=== PATIENT | female | born 1945 | race Caucasian/White ===

== ENCOUNTER 2019-11-17 20:04 | Inpatient (IN) | payer MEDICARE, OTHER ==
[2019-11-17] MEDS ORDERED: SODIUM CHLORIDE 0.9% 1,000 ML IV STA (20:13)
[2019-11-17] MEDS ORDERED: ZIPRASIDONE 20 MG VIAL IM STA (20:17)
[2019-11-17] MEDS ORDERED: LORazepam 2 MG/ML INJ IM STA (20:17)
[2019-11-17 20:21] LABS: Glucose,Whole Blood 190 mg/dL (75-99)
--- NOTE | 2019-11-17 20:52 | ED ---
Altered Mental Status HPI - General Chief Complaint: Altered Mental Status Stated Complaint: Altered Mental Status Time Seen by Provider: 11/17/19 20:04 Source: patient, police, EMS, RN notes reviewed Mode of arrival: EMS - History of Present Illness Initial Comments: This is a 74-year-old female history of hypertension and thyroid disease who is brought in by EMS at the behest of police because of confusion and altered mental status and erratic behavior. Is unknown what the patient's had any drugs or alcohol she did apparently moved here recently from [facility] that about 3 weeks ago. No reports of trauma no fevers chills nausea vomiting sweats reported with the history is limited. MD Complaint: altered mental status, confusion - Related Data Home Medications Medication Instructions Recorded Confirmed Unable To Assess [Unable to Assess] 11/17/19 11/17/19 Allergies Allergy/AdvReac Type Severity Reaction Status Date / Time No Known Allergies Allergy Verified 11/17/19 20:28 Review of Systems ROS Statement: Those systems with pertinent positive or pertinent negative responses have been documented in the HPI. ROS Other: All systems not noted in ROS Statement are negative. Limitations: ROS unobtainable due to patients medical condition Past Medical History Past Medical History: Hyperlipidemia, Thyroid Disorder History of Any Multi-Drug Resistant Organisms: None Reported Past Surgical History: Hysterectomy Past Psychological History: Unable to Obtain Smoking Status: Unknown if ever smoked Past Alcohol Use History: None Reported Past Drug Use History: None Reported General Exam - General Exam Comments Initial Comments: This is a well-developed well-nourished awake alert female who is demonstrating flight of ideas and evidence of paranoid behavior. General appearance: alert, anxious Head exam: Present: atraumatic, normocephalic, normal inspection Eye exam: Present: normal appearance, PERRL, EOMI. Absent: scleral icterus, conjunctival injection, periorbital swelling ENT exam: Present: normal exam, mucous membranes moist Neck exam: Present: normal inspection, full ROM, other (No stridor JVD or bruits). Absent: tenderness, meningismus, lymphadenopathy Respiratory exam: Present: normal lung sounds bilaterally. Absent: respiratory distress, wheezes, rales, rhonchi, stridor Cardiovascular Exam: Present: regular rate, normal rhythm, normal heart sounds. Absent: systolic murmur, diastolic murmur, rubs, gallop, clicks GI/Abdominal exam: Present: soft, normal bowel sounds. Absent: distended, tenderness, guarding, rebound, rigid Extremities exam: Present: normal inspection, full ROM, normal capillary refill. Absent: tenderness, pedal edema, joint swelling, calf tenderness Back exam: Present: normal inspection Neurological exam: Present: alert, altered, CN II-XII intact. Absent: motor sensory deficit Psychiatric exam: Present: agitated, anxious, manic, other Skin exam: Present: warm, dry, intact, normal color. Absent: rash Course Vital Signs 11/17/19 11/17/19 11/17/19 20:12 22:15 22:33 Temperature 99.1 F Pulse Rate 88 62 61 Respiratory 17 16 18 Rate Blood Pressure 138/91 78/56 109/71 O2 Sat by Pulse 94 L 98 97 Oximetry - Reevaluation(s) Reevaluation #1: 11/17/19 23:34 Patient was reevaluated on several occasions she did require initially chemical sedation due to bizarre erratic behavior which did threaten her well-being. She since that time has been resting comfortably she did have an episode of hypotension did resolve after IV fluids. Medical Decision Making - Medical Decision Making Patient continues to demonstrate sedation. She will be admitted for observation tonight for IV hydration and monitoring with psychiatric consultation in the a.m. Medical records from [facility] are pending delivery. - Lab Data Result diagrams: 11/17/19 20:43 11/17/19 20:43 Lab Results 11/17/19 11/17/19 11/17/19 Range/Units 20:09 20:43 20:43 WBC 6.2 (3.8-10.6) k/uL RBC 5.19 (3.80-5.40) m/uL Hgb 15.5 (11.4-16.0) gm/dL Hct 45.3 (34.0-46.0) % MCV 87.2 (80.0-100.0) fL MCH 29.8 (25.0-35.0) pg MCHC 34.2 (31.0-37.0) g/dL RDW 12.6 (11.5-15.5) % Plt Count 330 (150-450) k/uL Neutrophils % 68 % Lymphocytes % 25 % Monocytes % 4 % Eosinophils % 1 % Basophils % 0 % Neutrophils # 4.2 (1.3-7.7) k/uL Lymphocytes # 1.6 (1.0-4.8) k/uL Monocytes # 0.3 (0-1.0) k/uL Eosinophils # 0.1 (0-0.7) k/uL Basophils # 0.0 (0-0.2) k/uL PT 9.7 (9.0-12.0) sec INR 0.9 (<1.2) APTT 22.0 (22.0-30.0) sec Sodium (137-145) mmol/L Potassium (3.5-5.1) mmol/L Chloride (98-107) mmol/L Carbon Dioxide (22-30) mmol/L Anion Gap mmol/L BUN (7-17) mg/dL Creatinine (0.52-1.04) mg/dL Est GFR (CKD-EPI)AfAm (>60 ml/min/1.73 sqM) Est GFR (CKD-EPI)NonAf (>60 ml/min/1.73 sqM) Glucose (74-99) mg/dL POC Glucose (mg/dL) 190 H (75-99) mg/dL POC Glu [employer] Concierge ID Octavio Jenkins Calcium (8.4-10.2) mg/dL Magnesium (1.6-2.3) mg/dL Total Bilirubin (0.2-1.3) mg/dL AST (14-36) U/L ALT (4-34) U/L Alkaline Phosphatase (38-126) U/L Ammonia (<30) umol/L Creatine Kinase (30-135) U/L Troponin I (0.000-0.034) ng/mL Total Protein (6.3-8.2) g/dL Albumin (3.5-5.0) g/dL TSH (0.465-4.680) mIU/L Urine Color Urine Appearance (Clear) Urine pH (5.0-8.0) Ur Specific [place] (1.001-1.035) Urine Protein (Negative) Urine Glucose (UA) (Negative) Urine Ketones (Negative) Urine Blood (Negative) Urine Nitrite (Negative) Urine Bilirubin (Negative) Urine Urobilinogen (<2.0) mg/dL Ur Leukocyte Esterase (Negative) Urine RBC (0-5) /hpf Urine WBC (0-5) /hpf Ur Squamous Epith Cells (0-4) /hpf Urine Bacteria (None) /hpf Hyaline Casts (0-2) /lpf Urine Mucus (None) /hpf 11/17/19 11/17/19 11/17/19 Range/Units 20:43 20:43 21:02 WBC (3.8-10.6) k/uL RBC (3.80-5.40) m/uL Hgb (11.4-16.0) gm/dL Hct (34.0-46.0) % MCV (80.0-100.0) fL MCH (25.0-35.0) pg MCHC (31.0-37.0) g/dL RDW (11.5-15.5) % Plt Count (150-450) k/uL Neutrophils % % Lymphocytes % % Monocytes % % Eosinophils % % Basophils % % Neutrophils # (1.3-7.7) k/uL Lymphocytes # (1.0-4.8) k/uL Monocytes # (0-1.0) k/uL Eosinophils # (0-0.7) k/uL Basophils # (0-0.2) k/uL PT (9.0-12.0) sec INR (<1.2) APTT (22.0-30.0) sec Sodium 138 (137-145) mmol/L Potassium 4.0 (3.5-5.1) mmol/L Chloride 106 (98-107) mmol/L Carbon Dioxide 25 (22-30) mmol/L Anion Gap 7 mmol/L BUN 19 H (7-17) mg/dL Creatinine 1.02 (0.52-1.04) mg/dL Est GFR (CKD-EPI)AfAm 62 (>60 ml/min/1.73 sqM) Est GFR (CKD-EPI)NonAf 54 (>60 ml/min/1.73 sqM) Glucose 159 H (74-99) mg/dL POC Glucose (mg/dL) (75-99) mg/dL POC Glu [employer] Concierge ID Calcium 10.4 H (8.4-10.2) mg/dL Magnesium 2.3 (1.6-2.3) mg/dL Total Bilirubin 0.8 (0.2-1.3) mg/dL AST 31 (14-36) U/L ALT 29 (4-34) U/L Alkaline Phosphatase 91 (38-126) U/L Ammonia 12 (<30) umol/L Creatine Kinase 111 (30-135) U/L Troponin I <0.012 (0.000-0.034) ng/mL Total Protein 7.0 (6.3-8.2) g/dL Albumin 4.3 (3.5-5.0) g/dL TSH 1.400 (0.465-4.680) mIU/L Urine Color Urine Appearance (Clear) Urine pH (5.0-8.0) Ur Specific [place] (1.001-1.035) Urine Protein (Negative) Urine Glucose (UA) (Negative) Urine Ketones (Negative) Urine Blood (Negative) Urine Nitrite (Negative) Urine Bilirubin (Negative) Urine Urobilinogen (<2.0) mg/dL Ur Leukocyte Esterase (Negative) Urine RBC (0-5) /hpf Urine WBC (0-5) /hpf Ur Squamous Epith Cells (0-4) /hpf Urine Bacteria (None) /hpf Hyaline Casts (0-2) /lpf Urine Mucus (None) /hpf 03/25/20 Range/Units 23:04 WBC (3.8-10.6) k/uL RBC (3.80-5.40) m/uL Hgb (11.4-16.0) gm/dL Hct (34.0-46.0) % MCV (80.0-100.0) fL MCH (25.0-35.0) pg MCHC (31.0-37.0) g/dL RDW (11.5-15.5) % Plt Count (150-450) k/uL Neutrophils % % Lymphocytes % % Monocytes % % Eosinophils % % Basophils % % Neutrophils # (1.3-7.7) k/uL Lymphocytes # (1.0-4.8) k/uL Monocytes # (0-1.0) k/uL Eosinophils # (0-0.7) k/uL Basophils # (0-0.2) k/uL PT (9.0-12.0) sec INR (<1.2) APTT (22.0-30.0) sec Sodium (137-145) mmol/L Potassium (3.5-5.1) mmol/L Chloride (98-107) mmol/L Carbon Dioxide (22-30) mmol/L Anion Gap mmol/L BUN (7-17) mg/dL Creatinine (0.52-1.04) mg/dL Est GFR (CKD-EPI)AfAm (>60 ml/min/1.73 sqM) Est GFR (CKD-EPI)NonAf (>60 ml/min/1.73 sqM) Glucose (74-99) mg/dL POC Glucose (mg/dL) (75-99) mg/dL POC Glu [employer] Concierge ID Calcium (8.4-10.2) mg/dL Magnesium (1.6-2.3) mg/dL Total Bilirubin (0.2-1.3) mg/dL AST (14-36) U/L ALT (4-34) U/L Alkaline Phosphatase (38-126) U/L Ammonia (<30) umol/L Creatine Kinase (30-135) U/L Troponin I (0.000-0.034) ng/mL Total Protein (6.3-8.2) g/dL Albumin (3.5-5.0) g/dL TSH (0.465-4.680) mIU/L Urine Color Yellow Urine Appearance Turbid H (Clear) Urine pH 6.0 (5.0-8.0) Ur Specific [place] 1.031 (1.001-1.035) Urine Protein 2+ H (Negative) Urine Glucose (UA) Negative (Negative) Urine Ketones 1+ H (Negative) Urine Blood Small H (Negative) Urine Nitrite Negative (Negative) Urine Bilirubin Negative (Negative) Urine Urobilinogen 2.0 (<2.0) mg/dL Ur Leukocyte Esterase Moderate H (Negative) Urine RBC 31 H (0-5) /hpf Urine WBC 9 H (0-5) /hpf Ur Squamous Epith Cells 9 H (0-4) /hpf Urine Bacteria Occasional H (None) /hpf Hyaline Casts 95 H (0-2) /lpf Urine Mucus Many H (None) /hpf - EKG Data -: EKG Interpreted by Ak EKG shows normal: sinus rhythm (Sinus rhythm at a time. Interval 150 QRS duration 1:30 QT/QTC 382/464) bundle-branch block left anterior fascicular block evidence of septal infarct of undetermined age) - Radiology Data Radiology results: report reviewed (Did review the imaging and report no acute findings.), image reviewed Disposition Clinical Impression: Acute hysterical psychosis, Hailey, Hypotensive episode, Dehydration Disposition: ADMITTED IP TO THIS [facility] Condition: Fair Referrals: None,Stated [Primary Care Provider] - 1-2 days
[2019-11-17 20:56] LABS: Basophils % (A) 0 %; Eosinophils # (A) 0.1 k/uL (0-0.7); Eosinophils % (A) 1 %; HCT 45.3 % (34.0-46.0); HGB 15.5 gm/dL (11.4-16.0); Lymphocytes # (A) 1.6 k/uL (1.0-4.8); Lymphocytes % (A) 25 %; MCH 29.8 pg (25.0-35.0); MCHC 34.2 g/dL (31.0-37.0); MCV 87.2 fL (80.0-100.0); Mean Platelet Volume 6.6; Monocytes # (A) 0.3 k/uL (0-1.0); Monocytes % (A) 4 %; Neutrophils # (A) 4.2 k/uL (1.3-7.7); Neutrophils % (A) 68 %; Platelet Count 330 k/uL (150-450); RBC 5.19 m/uL (3.80-5.40); RDW 12.6 % (11.5-15.5); WBC 6.2 k/uL (3.8-10.6)
[2019-11-17 21:04] LABS: Albumin 4.3 g/dL (3.5-5.0); Calcium 10.4 mg/dL (8.4-10.2); Magnesium 2.3 mg/dL (1.6-2.3); Total Bilirubin 0.8 mg/dL (0.2-1.3)
[2019-11-17 21:25] LABS: INR 0.9 (<1.2); Prothrombin Time 9.7 sec (9.0-12.0)
--- NOTE | 2019-11-17 21:38 | CT ---
EXAMINATION TYPE: CT brain wo con DATE OF EXAM: 11/17/2019 COMPARISON: None HISTORY: ams, fever CT DLP: 1197.[address] of the brain was performed. The ventricles, basal cisterns and sulci overlying the cerebral convexities demonstrate mild enlargem ent. There is no evidence for intracranial hemorrhage or sulcal effacement. There is decreased attenuation about the periventricular white matter and deep white matter of both c erebral hemispheres, compatible with chronic small vessel ischemia. Differential diagnosis does inclu de demyelination. No mass effects are seen.No midline shift. Osseous calvarium is intact. If symptoms persist consider MRI. IMPRESSION: 1. Age related atrophic and chronic small vessel ischemic change without acute intracranial process s een at this time.
--- NOTE | 2019-11-17 21:38 | XR ---
EXAMINATION TYPE: XR chest 2V DATE OF EXAM: 11/17/2019 COMPARISON: NONE HISTORY: Shortness of breath TECHNIQUE: Frontal and lateral views of the chest are obtained. FINDINGS: Scattered senescent parenchymal changes noted. Hyperinflation compatible with COPD. No evidence for infiltrate. No evidence for atelectasis. Heart size is stable. Mediastinal structures are stable and grossly unremarkable. No evidence for hilar prominence. Degenerative changes dorsal spine. IMPRESSION: 1. No evidence for acute pulmonary disease.
[2019-11-17] MEDS ORDERED: SODIUM CHLORIDE 0.9% 1,000 ML IV ONE (22:16)
[2019-11-17 23:24] LABS: Appearance,Urine Turbid (Clear); Bacteria,Urine Occasional /hpf; Bilirubin,Urine Negative (Negative); Blood,Urine Small (Negative); Color,Urine Yellow; Glucose,Urine (UA) Negative (Negative); Hyaline Casts,Urine 95 /lpf (0-2); Ketones,Urine 1+ (Negative); Leukocyte Esterase,Urine Moderate (Negative); Mucus,Urine Many /hpf; Nitrite,Urine Negative (Negative); Protein,Urine 2+ (Negative); RBC,Urine 31 /hpf (0-5); Specific Gravity,Urine 1.031 (1.001-1.035); Squamous Epithelial Cell,Urine 9 /hpf (0-4); WBC,Urine 9 /hpf (0-5)
[2019-11-17] MEDS ORDERED: NALOXONE 0.4 MG/ML 1 ML VIAL IV PRN (23:37)
[2019-11-17 23:39] LABS: Amphetamine Screen,Urine Not Detected (NotDetected); Barbiturate Screen,Urine Not Detected (NotDetected); Benzodiazepines Screen,Urine Not Detected (NotDetected); Cocaine Screen,Urine Not Detected (NotDetected); Methadone Screen, Urine Not Detected (NotDetected); Opiate Screen,Urine Not Detected (NotDetected); Oxycodone Screen, Urine Not Detected (NotDetected); Phencyclidine Screen,Urine Not Detected (NotDetected); Tricyclic Antidepressant,Urine Not Detected (NotDetected); Urn Cannabinoid Scrn Not Detected (NotDetected)
[2019-11-18] MEDS: SODIUM CHLORIDE 0.9% 1,000 ML IV SCH ×2 (00:07→13:54)
--- NOTE | 2019-11-18 11:42 | P.HPIM ---
History of Present Illness 74-year-old female was brought in by police because of agitation. Patient was quite a bit agitated yesterday patient received Geodon and Ativan today because of which way she she is bit slow patient alert oriented 3. Patient denied any UTI symptoms including dysuria superpubic pain increased urinary frequency patient has contaminated urine sample patient blood quite any antibiotics. Patient is admitted to medical floor with psychiatric consult as patient had recent travel to [place] it's been 12 days, since see came to [place], plan is to keep her couple more days here before she is clear to go to psychiatric floor unless she is cleared by psychiatric to be discharged home. Patient denied any cough fever chills nausea vomiting. Patient may not require sitter patient denied any suicidal or homicidal ideations at this time. Patient is presently not agitated. If patient is cleared by psychiatric to be discharged then patient will be discharged with recommendations of self-isolation. Review of Systems REVIEW OF SYSTEMS: CONSTITUTIONAL: No fever, no malaise, no fatigue. HEENT: No recent visual problems or hearing problems. Denied any sore throat. CARDIOVASCULAR: No chest pain, orthopnea, PND, no palpitations, no syncope. PULMONARY: No shortness of breath, no cough, no hemoptysis. GASTROINTESTINAL: No diarrhea, no nausea, no vomiting, no abdominal pain. NEUROLOGICAL: No headaches, no weakness, no numbness. HEMATOLOGICAL: Denies any bleeding or petechiae. GENITOURINARY: Denies any burning micturition, frequency, or urgency. MUSCULOSKELETAL/RHEUMATOLOGICAL: Denies any joint pain, swelling, or any muscle pain. ENDOCRINE: Denies any polyuria or polydipsia. The rest of the 14-point review of systems is negative. Past Medical History Past Medical History: Hyperlipidemia, Thyroid Disorder History of Any Multi-Drug Resistant Organisms: None Reported Past Surgical History: Hysterectomy Past Psychological History: Unable to Obtain Smoking Status: Unknown if ever smoked Past Alcohol Use History: None Reported Past Drug Use History: None Reported Medications and Allergies Home Medications Medication Instructions Recorded Confirmed Type Aspirin [Adult Low Dose Aspirin EC] 81 mg PO DAILY 11/18/19 11/18/19 History Levothyroxine Sodium 112 mcg PO DAILY 11/18/19 11/18/19 History Metoprolol Tartrate [Lopressor] 25 mg PO BID 11/18/19 11/18/19 History Multivitamins, Thera [Multivitamin 1 tab PO W/SUPPER 11/18/19 11/18/19 History (formulary)] Allergies Allergy/AdvReac Type Severity Reaction Status Date / Time lamotrigine Allergy Rash/Hives Verified 11/18/19 08:53 zolpidem AdvReac Unknown Verified 11/18/19 08:53 Physical Exam Vitals: Vital Signs Temp Pulse Pulse Resp BP BP Pulse Ox 11/18/19 07:00 98.6 F 66 17 130/84 99 11/18/19 04:00 17 11/18/19 03:17 97.1 F L 69 14 143/86 100 11/18/19 00:16 98.3 F 67 16 104/68 98 11/17/19 23:00 65 16 112/91 100 11/17/19 22:33 61 18 109/71 97 11/17/19 22:15 62 16 78/56 98 11/17/19 20:12 99.1 F 88 17 138/91 94 L Intake and Output 11/17/19 11/18/19 11/18/19 22:59 06:59 14:59 Output Total 0 Balance 0 Output: Urine 0 Other: # Voids 0 Weight 165.9 kg 165.9 kg PHYSICAL EXAMINATION: GENERAL: The patient is alert and oriented x3, not in any acute distress. Well developed, well nourished. HEENT: Pupils are round and equally reacting to light. EOMI. No scleral icterus. No conjunctival pallor. Normocephalic, atraumatic. No pharyngeal erythema. No thyromegaly. CARDIOVASCULAR: S1 and S2 present. No murmurs, rubs, or gallops. PULMONARY: Chest is clear to auscultation, no wheezing or crackles. ABDOMEN: Soft, nontender, nondistended, normoactive bowel sounds. No palpable organomegaly. MUSCULOSKELETAL: No joint swelling or deformity. EXTREMITIES: No cyanosis, clubbing, or pedal edema. NEUROLOGICAL: Gross neurological examination did not reveal any focal deficits. SKIN: No rashes. Psychiatric patient is mentally slow not agitated at this time I believe it's because of Geodon and Ativan she received Results CBC & Chem 7: 11/17/19 20:43 11/17/19 20:43 Labs: Abnormal Lab Results - Last 24 Hours (Table) 11/17/19 11/17/19 11/17/19 Range/Units 20:09 20:43 23:04 BUN 19 H (7-17) mg/dL Glucose 159 H (74-99) mg/dL POC Glucose (mg/dL) 190 H (75-99) mg/dL Calcium 10.4 H (8.4-10.2) mg/dL Urine Appearance Turbid H (Clear) Urine Protein 2+ H (Negative) Urine Ketones 1+ H (Negative) Urine Blood Small H (Negative) Ur Leukocyte Esterase Moderate H (Negative) Urine RBC 31 H (0-5) /hpf Urine WBC 9 H (0-5) /hpf Ur Squamous Epith Cells 9 H (0-4) /hpf Urine Bacteria Occasional H (None) /hpf Hyaline Casts 95 H (0-2) /lpf Urine Mucus Many H (None) /hpf Thrombosis Risk Factor Assmnt - Choose All That Apply Each Risk Factor Represents 3 Points: Age 75 years or older Thrombosis Risk Factor Assessment Total Risk Factor Score: 3 Thrombosis Risk Factor Assessment Level: Moderate Risk Assessment and Plan Plan: -Agitation and psychosis: Management as per psychiatry and patient received Geodon and Ativan Ativan will be discontinued at this time. -Asymptomatic bacteriuria and contaminated urine sample will not require any antibiotics at this time. -Hypothyroidism -Hyperlipidemia -Hypertension for these medical problems patient will be resumed on appropriate home medications -DVT prophylaxis early ambulation
--- NOTE | 2019-11-18 13:12 | P.HP ---
Psychiatric H&P - . H&P Date: 11/18/19 History & Physical: DATE OF SERVICE: 11/18/2019 IDENTIFYING DATA: HISTORY OF PRESENT ILLNESS: The patient is a 74-year-old , female was brought in to ER by police because of agitation. As per ER records, she was quite agitated and received Geodon and Ativan. She is bit slow but alert oriented 3. The patient is a poor historian and was not cooperative with the psychiatric evaluation. Limited information was obtained through chart review. A detailed letter from patient's daughter was found in the chart that was reviewed. As per the records the patient has a long history of psychiatric illness with the diagnosis of chronic paranoid schizophrenia and bipolar disorder. The patient shows lack of insight into her illness and his long history of poor compliance with her p sychiatric treatment. The patient reports that she has not been taking her psychiatric medications and refused to provide any information about the last time she took the medications. The patient reports that she moved to [place] from [place] about 12 days ago because "the environment was changing there". The patient reports fair sleep and appetite but reports that she has been trying to eat lesser than her appetite. The patient became agitated when asked about her psychiatric history and refused to answer any questions. The patient reports that she believed that she does not need any psychiatric treatment at this time. The patient denies any auditory or visual hallucinations but appears to be preoccupied and at times appears to be responding to internal cues. The patient denies any active suicidal or homicidal ideations but appears to be paranoid. The patient made comments about drugs being added to her food. PAST PSYCHIATRIC HISTORY: The patient admitted to previous psychiatric hospitalizations. As per the letter from her daughter, the patient has long history of psychiatric illness ever since the daughter was young. The patient has history of multiple psychiatric hospitalizations in the past and was last hospitalized about a year ago in [place]. The patient has history of poor compliance with her treatment. The patient has history of multiple involuntary commitments in the past as well. The patient currently has DPA. As per the letter from her daughter, the patient has history of 4 episodic mood swings, paranoia, agitation, and responding to internal cues. PAST MEDICAL HISTORY: Hyperlipidemia, Thyroid Disorder History of Any Multi-Drug Resistant Organisms: None Reported Past Surgical History: Hysterectomy Past Psychological History: Unable to Obtain Smoking Status: Unknown if ever smoked Past Alcohol Use History: None Reported Past Drug Use History: None Reported ALLERGIES: [Zolpidem and Lamotrogine]. CHEMICAL DEPENDENCY HISTORY: [None reported]. FAMILY PSYCHIATRIC HISTORY: [Unavailable because the patient refused to answer]. FAMILY CHEMICAL DEPENDENCY HISTORY:[ Unavailable because the patient refused to answer]. LEGAL HISTORY: [Multiple involuntary commitments to psychiatric hospitals]. SOCIAL HISTORY: [Limited information is available at this time. The patient reports that she moved from [place] to [place] about 2 weeks ago. She r eports living with "the most wonderful cunningham in the world" who is her boyfriend. The patient is currently a and has 2 daughters.]. Objective: Vitals has been reviewed. MENTAL STATUS EXAM: Appearance: The patient appears stated age, she appears in no acute distress and is laying comfortably in bed.. Gait/posture: No abnormal movements. Attitude and behavior: The patient was attempting to be superficially cooperative in the beginning of the session but became agitated when asked about psychiatric history. Motor activity: Increased psychomotor agitation. Speech: Hyperverbal, rapid and tangential. She was difficult to be redirected. Mood: "Good" Affect: Expanded Thought form: Confused and disorganized Thought content: Delusional and paranoid, she denies suicidal thoughts, denies homicidal thoughts, denies intentions or plans. Perception: Denies any auditory or visual hallucinations Orientation: Patient patient was fully oriented to time place person and situation. Insight: Patient has poor insight about her psychiatric disorder. Judgment: Patient has impaired judgment about her psychiatric treatment. ]. Allergy/AdvReac Type Severity Reaction Status Date / Time lamotrigine Allergy Rash/Hives Verified 11/18/19 08:53 zolpidem AdvReac Unknown Verified 11/18/19 08:53 Vital Signs Temp 98.6 F 11/18/19 07:00 Pulse 66 11/18/19 07:00 Resp 17 11/18/19 07:00 BP 130/84 11/18/19 07:00 Pulse Ox 99 11/18/19 07:00 Intake & Output 11/17/19 11/18/19 11/18/19 18:59 06:59 18:59 Output Total 0 Balance 0 Weight 165.9 kg Output: Urine 0 Other: # Voids 0 Laboratory Last Values WBC 6.2 k/uL (3.8-10.6) 11/17/19 20:43 RBC 5.19 m/uL (3.80-5.40) 11/17/19 20:43 Hgb 15.5 gm/dL (11.4-16.0) 11/17/19 20:43 Hct 45.3 % (34.0-46.0) 11/17/19 20: MCV 87.2 fL (80.0-100.0) 11/17/19:43 MCH 29.8 pg (25.0-35.0) 11/17/19 20: MCHC 34.2 g/dL (31.0-37.0) 11/17/19: RDW 12.6 % (11.5-15.5) 11/17/19: Plt Count 330 k/uL (150-450) 11/17/19 20: Neutrophils % 68 % 11/17/19 20:43 Lymphocytes % 25 % 11/17/19 20: Monocytes % 4 % 11/17/19: Eosinophils % 1 % 11/17/19 20: Basophils % 0 % 11/17/19 20:43 Neutrophils # 4.2 k/uL (1.3-7.7) 11/17/19:43 Lymphocytes # 1.6 k/uL (1.0-4.8) 11/17/19:43 Monocytes # 0.3 k/uL (0-1.0) 11/17/19:43 Eosinophils # 0.1 k/uL (0-0.7) 11/17/19: Basophils # 0.0 k/uL (0-0.2) 11/17/19 20:43 PT 9.7 sec (9.0-12.0) 11/17/19 20:43 INR 0.9 (<1.2) 11/17/19:43 APTT 22.0 sec (22.0-30.0) 11/17/19 20:43 Sodium 138 mmol/L (137-145) 11/17/19 20:43 Potassium 4.0 mmol/L (3.5-5.1) 11/17/19 20:43 Chloride 106 mmol/L (98-107) 11/17/19 20:43 Carbon Dioxide 25 mmol/L (22-30) 11/17/19 20:43 Anion Gap 7 mmol/L 11/17/19 20: BUN 19 mg/dL (7-17) H 11/17/19 20: Creatinine 1.02 mg/dL (0.52-1.04) 11/17/19 20:43 Est GFR (CKD-EPI)AfAm 62 (>60 ml/min/1.73 sqM) 11/17/19: Est GFR (CKD-EPI)NonAf 54 (>60 ml/min/1.73 sqM) 11/17/19 20: Glucose 159 mg/dL (74-99) H 11/17/19: POC Glucose (mg/dL) 190 mg/dL (75-99) H 11/17/19 20:09 POC Glu Transportation Consultant ID Octavio Jenkins 11/17/19 20: Calcium 10.4 mg/dL (8.4-10.2) H 11/17/19: Magnesium 2.3 mg/dL (1.6-2.3) 11/17/19: Total Bilirubin 0.8 mg/dL (0.2-1.3) 11/17/19 20: AST 31 U/L (14-36) 11/17/19: ALT 29 U/L (4-34) 11/17/19: Alkaline Phosphatase 91 U/L (38-126) 11/17/19: Ammonia 12 umol/L (<30) 11/17/19 21:02 Creatine Kinase 111 U/L (30-135) 11/17/19: Troponin I <0.012 ng/mL (0.000-0.034) 11/17/19: Total Protein 7.0 g/dL (6.3-8.2) 11/17/19: Albumin 4.3 g/dL (3.5-5.0) 11/17/19 20: TSH 1.400 mIU/L (0.465-4.680) 11/17/19 20:43 Urine Color Yellow 11/17/19 23:04 Urine Appearance Turbid (Clear) H 11/17/19 23:04 Urine pH 6.0 (5.0-8.0) 11/17/19 23:04 Ur Specific [place] 1.031 (1.001-1.035) 11/17/19 23:04 Urine Protein 2+ (Negative) H 11/17/19 23:04 Urine Glucose (UA) Negative (Negative) 11/17/19 23:04 Urine Ketones 1+ (Negative) H 11/17/19 23:04 Urine Blood Small (Negative) H 11/17/19 23:04 Urine Nitrite Negative (Negative) 11/17/19 23:04 Urine Bilirubin Negative (Negative) 11/17/19 23:04 Urine Urobilinogen 2.0 mg/dL (<2.0) 11/17/19 23:04 Ur Leukocyte Esterase Moderate (Negative) H 11/17/19 23:04 Urine RBC 31 /hpf (0-5) H 11/17/19 23:04 Urine WBC 9 /hpf (0-5) H 11/17/19 23:04 Ur Squamous Epith Cells 9 /hpf (0-4) H 11/17/19 23:04 Urine Bacteria Occasional /hpf (None) H 11/17/19 23:04 Hyaline Casts 95 /lpf (0-2) H 11/17/19 23:04 Urine Mucus Many /hpf (None) H 11/17/19 23:04 Urine Opiates Screen Not Detected (NotDetected) 11/17/19 23:04 Ur Oxycodone Screen Not Detected (NotDetected) 11/17/19 23:04 Urine Methadone Screen Not Detected (NotDetected) 11/17/19 23:04 Ur Propoxyphene Screen Not Detected (NotDetected) 11/17/19 23:04 Ur Barbiturates Screen Not Detected (NotDetected) 11/17/19 23:04 U Tricyclic Antidepress Not Detected (NotDetected) 11/17/19 23:04 Ur Phencyclidine Scrn Not Detected (NotDetected) 11/17/19 23:04 Ur Amphetamines Screen Not Detected (NotDetected) 11/17/19 23:04 U Methamphetamines Scrn Not Detected (NotDetected) 11/17/19 23:04 U Benzodiazepines Scrn Not Detected (NotDetected) 11/17/19 23:04 Urine Cocaine Screen Not Detected (NotDetected) 11/17/19 23:04 U Marijuana (THC) Screen Not Detected (NotDetected) 11/17/19 23:04 11/18/19 12:20 11/18/19 12:23 11/18/19 12:54 Assessment and Plan Assessment: IMPRESSIONS: Chronic paranoid schizophrenia acute exacerbation. Rule out bipolar disorder manic episode with psychotic features Plan: PLAN: -At this time patient meets criteria for inpatient psychiatric admission after she is medically clear. One-to-one supportive psychotherapy and reality orientation was provided. The patient is refusing any psychiatric treatment and clinical certificates was filled out and placed in the chart. -NRT - nicotine patch
[2019-11-18] MEDS: MULTIVITAMINS, THERA 1 EACH TAB PO SCH (16:52)
[2019-11-18] MEDS: HALOPERIDOL LACTATE 5 MG/ML 1 ML VIAL IM PRN (17:04)
[2019-11-18] MEDS: METOPROLOL TARTRATE 25 MG TAB PO SCH (20:39)
[2019-11-18] MEDS: HEPARIN SODIUM,PORCINE 5,000 UNIT/ML 1 ML VIAL SQ SCH (20:39)
[2019-11-19] MEDS: HALOPERIDOL LACTATE 5 MG/ML 1 ML VIAL IM PRN ×2 (01:14→10:37)
[2019-11-19] MEDS: SODIUM CHLORIDE 0.9% 1,000 ML IV SCH ×3 (05:21→20:10)
[2019-11-19] MEDS: LEVOTHYROXINE 112 MCG TAB PO SCH (05:42)
[2019-11-19] MEDS: METOPROLOL TARTRATE 25 MG TAB PO SCH ×2 (07:05→20:04)
[2019-11-19] MEDS: ASPIRIN 81 MG PO SCH (07:05)
[2019-11-19] MEDS: HEPARIN SODIUM,PORCINE 5,000 UNIT/ML 1 ML VIAL SQ SCH ×3 (07:06→20:04)
--- NOTE | 2019-11-19 15:58 | P.PN ---
Subjective Progress Note Date: 11/19/19 Principal diagnosis: 74-year-old female was brought in by police because of agitation. Patient was quite a bit agitated yesterday patient received Geodon and Ativan today because of which way she she is bit slow patient alert oriented 3. Patient denied any UTI symptoms including dysuria superpubic pain increased urinary frequency patient has contaminated urine sample patient blood quite any antibiotics. Patient is admitted to medical floor with psychiatric consult as patient had recent travel to [place] it's been 12 days, since see came to [place], plan is to keep her couple more days here before she is clear to go to psychiatric floor unless she is cleared by psychiatric to be discharged home. Patient denied any cough fever chills nausea vomiting. Patient may not require sitter patient denied any suicidal or homicidal ideations at this time. Patient is pre sently not agitated. If patient is cleared by psychiatric to be discharged then patient will be discharged with recommendations of self-isolation. 11/19/2019 Patient is seen and evaluated in follow-up today sleeping but arousable. Sitter at the bedside. Patient attempted to run another room and down the thomas last night and was given IM Haldol. Per sitter at the bedside patient was slightly agitated earlier but was able to be redirected and took a shower today. Psychiatry following. Patient is petitioned and will be going to psychiatric unit once medically stable. Will continue with bedside sitter at this time. No reports of chest pain, shortness of breath, or palpitations. Afebrile. No reports of nausea or vomiting. Objective - Vital Signs Vital signs: Vital Signs Temp 99.3 F 11/19/19 07:18 Pulse 59 L 11/19/19 07:18 Resp 17 11/19/19 07:56 BP 148/85 11/19/19 07:18 Pulse Ox 97 11/19/19 07:18 Intake & Output 11/18/19 11/19/19 11/19/19 18:59 06:59 18:59 Other: Voiding Method Toilet Toilet # Voids 3 2 # Bowel Movements 1 - Exam GENERAL: The patient is alert and oriented x3, not in any acute distress. Well developed, well nourished. HEENT: Pupils are round and equally reacting to light. EOMI. No scleral icterus. No conjunctival pallor. Normocephalic, atraumatic. No pharyngeal erythema. No thyromegaly. CARDIOVASCULAR: S1 and S2 present. No murmurs, rubs, or gallops. PULMONARY: Chest is clear to auscultation, no wheezing or crackles. ABDOMEN: Soft, nontender, nondistended, normoactive bowel sounds. No palpable or ganomegaly. MUSCULOSKELETAL: No joint swelling or deformity. EXTREMITIES: No cyanosis, clubbing, or pedal edema. NEUROLOGICAL: Gross neurological examination did not reveal any focal deficits. SKIN: No rashes. Psychiatric patient is mentally slow and agitates easily. Patient was given a dose of IM haldol. - Labs CBC & Chem 7: 11/17/19 20:43 11/17/19 20:43 Labs: Microbiology - Last 24 Hours (Table) 11/18/19 06:47 Blood Culture - Preliminary Blood No Growth after 24 hours Assessment and Plan Assessment: -Agitation and psychosis: Management as per psychiatry. IM Haldol as needed -Asymptomatic bacteriuria and contaminated urine sample will not require any antibiotics at this time. -Hypothyroidism -Hyperlipidemia -Hypertension; resumed on home meds -DVT prophylaxis early ambulation
[2019-11-19] MEDS: MULTIVITAMINS, THERA 1 EACH TAB PO SCH (17:08)
[2019-11-19 20:27] VITALS: RESP 18
[2019-11-20 02:25] VITALS: PULSE 57
[2019-11-20] MEDS: LEVOTHYROXINE 112 MCG TAB PO SCH (05:47)
[2019-11-20 07:22] VITALS: BP 151/92; TEMP 97.6
[2019-11-20] MEDS: METOPROLOL TARTRATE 25 MG TAB PO SCH ×2 (07:25→08:26)
[2019-11-20] MEDS: HEPARIN SODIUM,PORCINE 5,000 UNIT/ML 1 ML VIAL SQ SCH (07:25)
[2019-11-20] MEDS: ASPIRIN 81 MG PO SCH (07:25)
[2019-11-20] MEDS: SODIUM CHLORIDE 0.9% 1,000 ML IV SCH (07:26)
[2019-11-20 13:00] LABS: Appearance,Urine Clear (Clear); Bilirubin,Urine Negative (Negative); Blood,Urine Negative (Negative); Color,Urine Light Yellow; Glucose,Urine (UA) Negative (Negative); Ketones,Urine Negative (Negative); Leukocyte Esterase,Urine Negative (Negative); Nitrite,Urine Negative (Negative); PH, Urine 6.5 (5.0-8.0); Protein,Urine Negative (Negative); Urobilinogen,Urine <2.0 mg/dL (<2.0)
--- NOTE | 2019-11-20 14:01 | P.HPIM ---
History of Present Illness 74-year-old female was brought in by police because of agitation. Patient was quite a bit agitated yesterday patient received Geodon and Ativan today because of which way she she is bit slow patient alert oriented 3. Patient denied any UTI symptoms including dysuria superpubic pain increased urinary frequency patient has contaminated urine sample patient blood quite any antibiotics. Patient is admitted to medical floor with psychiatric consult as patient had recent travel to [place] it's been 12 days, since see came to [place], plan is to keep her couple more days here before she is clear to go to psychiatric floor unless she is cleared by psychiatric to be discharged home. Patient denied any cough fever chills nausea vomiting. Patient may not require sitter patient denied any suicidal or homicidal ideations at this time. Patient is presently not agitated. If patient is cleared by psychiatric to be discharged then patient will be discharged with recommendations of self-isolation. 11/19/2019 Patient is seen and evaluated in follow-up today sleeping but arousable. Sitter at the bedside. Patient attempted to run another room and down the [place]omas last night and was given IM Haldol. Per sitter at the bedside patient was slightly agitated earlier but was able to be redirected and took a shower today. Ps ychiatry following. Patient is petitioned and will be going to psychiatric unit once medically stable. Will continue with bedside sitter at this time. No reports of chest pain, shortness of breath, or palpitations. Afebrile. No reports of nausea or vomiting. 11/20/2019 Patient will be discharged to psychiatric floor today. It has been 14 days since patient travel to [facility] patient may not need any more isolation. PHYSICAL EXAMINATION: GENERAL: The patient is alert and oriented x3, not in any acute distress. Well developed, well nourished. HEENT: Pupils are round and equally reacting to light. EOMI. No scleral icterus. No conjunctival pallor. Normocephalic, atraumatic. No pharyngeal erythema. No thyromegaly. CARDIOVASCULAR: S1 and S2 present. No murmurs, rubs, or gallops. PULMONARY: Chest is clear to auscultation, no wheezing or crackles. ABDOMEN: Soft, nontender, nondistended, normoactive bowel sounds. No palpable organomegaly. MUSCULOSKELETAL: No joint swelling or deformity. EXTREMITIES: No cyanosis, clubbing, or pedal edema. NEUROLOGICAL: Gross neurological examination did not reveal any focal deficits. SKIN: No rashes. Assessment and Plan Assessment: -Agitation and psychosis: Management as per psychiatry. -Asymptomatic bacteriuria and contaminated urine sample will not require any antibiotics at this time. -Hypothyroidism -Hyperlipidemia -Hypertension; resumed on home meds Past Medical History Past Medical History: Hyperlipidemia, Thyroid Disorder History of Any Multi-Drug Resistant Organisms: None Reported Past Surgical History: Hysterectomy Past Psychological History: Unable to Obtain Smoking Status: Unknown if ever smoked Past Alcohol Use History: None Reported Past Drug Use History: None Reported Medications and Allergies Home Medications Medication Instructions Recorded Confirmed Type Aspirin [Adult Low Dose Aspirin EC] 81 mg PO DAILY 11/18/19 11/18/19 History Levothyroxine Sodium 112 mcg PO DAILY 11/18/19 11/18/19 History Metoprolol Tartrate [Lopressor] 25 mg PO BID 11/18/19 11/18/19 History Multivitamins, Thera [Multivitamin 1 tab PO W/SUPPER 11/18/19 11/18/19 History (formulary)] Allergies Allergy/AdvReac Type Severity Reaction Status Date / Time lamotrigine Allergy Rash/Hives Verified 11/18/19 08:53 zolpidem AdvReac Unknown Verified 11/18/19 08:53 Physical Exam Vitals: Vital Signs Temp Pulse Resp BP Pulse Ox 11/20/19 07:00 97.6 F 57 L 18 151/92 97 11/20/19 01:45 97.5 F L 57 L 18 123/73 96 11/19/19 19:00 98.4 F 67 18 151/81 92 L 11/19/19 14:35 98.3 F 59 L 16 138/88 99 Intake and Output 11/19/19 11/20/19 11/20/19 22:59 06:59 14:59 Other: Voiding Method Toilet Toilet Toilet # Voids 1 1 Results CBC & Chem 7: 11/17/19 20:43 11/17/19 20:43 Labs: Microbiology - Last 24 Hours (Table) 11/18/19 06:47 Blood Culture - Preliminary Blood No Growth after 48 hours Thrombosis Risk Factor Assmnt - Choose All That Apply Each Risk Factor Represents 3 Points: Age 75 years or older Thrombosis Risk Factor Assessment Total Risk Factor Score: 3 Thrombosis Risk Factor Assessment Level: Moderate Risk
--- NOTE | 2019-11-23 09:42 | CDI ---
Documentation Clarification Form Date: 11/23/19 From: Brooklyn Palma Phone: If you have a question about this query, please contact Gilda Burton, Privacy Officer at [phone] between 8am and 5pm. Admit Date: 11/19/19 Discharge Date: 11/20/19 Patient Name: KELBY WATTS Visit Number: [id number] ATTENTION: The Clinical Documentation Specialists (CDI) and [facility] Coding Staff appreciate your assistance in clarifying documentation. Please respond to the clarification below the line at the bottom and electronically sign. The CDI & [facility] Coding staff will review the response and follow-up if needed. Please note: Queries are made part of the Legal Health Record. If you have any questions, please contact the author of this message via ITS. Dear Dr. Binh Arnold, Conflicting documentation has been found in the medical record: Per H&P and DS: Agitation and psychosis: management as per psychiatry. Per Psych: chronic paranoid schizophrenia acute exacerbation. Rule out bipolar disorder manic episode with psychotic features. History/Risk Factors: hypothyroidism, dehydration, bacteriuria, hypertension, hyperlipidemia Clinical Indicators: Presents with agitation, has a long psychiatric hx. Treatment: Geodon IM, Hadol IM, Ativan IM In your opinion, what is the diagnosis that explains the psychosis for this patient? Chronic paranoid schizophrenia Bipolar disorder with manic episode with psychotic features Agitation with psychosis Other explanation of clinical findings Unable to determine (no explanation for clinical findings) impression was already dictated in my note for additional documentation with MTDD
== END 2019-11-20 12:59 | DRG 885 ==
LOC: EDBD → EC 20:04 → 4SSUR 23:53 → OBSVTOIN 11-19 08:29
PROVIDERS: ADMIT Internal Medicine; ATTEND Internal Medicine
DX: F23 Brief psychotic disorder (principal); I95.9 Hypotension, unspecified; Z91.128 Patient's intentional underdosing of medication regimen for other reason; T50.916A Underdosing of multiple unspecified drugs, medicaments and biological substances, initial encounter; E03.9 Hypothyroidism, unspecified; E86.0 Dehydration; R82.71 Bacteriuria; I10 Essential (primary) hypertension; E78.5 Hyperlipidemia, unspecified; Z79.82 Long term (current) use of aspirin; Z79.890 Hormone replacement therapy; Z79.899 Other long term (current) drug therapy; Z90.710 Acquired absence of both cervix and uterus; Z98.890 Other specified postprocedural states; Z88.8 Allergy status to other drugs, medicaments and biological substances; Y63.6 Underdosing and nonadministration of necessary drug, medicament or biological substance
CPT/HCPCS: 36415; 70450; 71046; 80053; 80306; 81001; 81003; 82140; 82550; 83735; 84443; 84484; 85025; 85610; 85730; 87040; 93005; 96360; 96361; 96372; 99285

== ENCOUNTER 2019-11-20 13:05 | Inpatient (IN) | payer MEDICARE ==
[2019-11-20] MEDS ORDERED: LORazepam 1 MG TAB PO PRN (13:10)
[2019-11-20] MEDS ORDERED: MAG HYDROX/AL HYDROX/SIMETH 30 ML CUP PO PRN (13:10)
[2019-11-20] MEDS ORDERED: MAGNESIUM HYDROXIDE 2,400 MG/10 ML CUP PO PRN (13:10)
[2019-11-20] MEDS ORDERED: ACETAMINOPHEN TAB 325 MG TAB PO PRN (13:10)
[2019-11-20] MEDS: METOPROLOL TARTRATE 25 MG TAB PO SCH (20:39)
[2019-11-20] MEDS: MULTIVITAMINS, THERA 1 EACH TAB PO SCH (20:40)
[2019-11-21] MEDS: LEVOTHYROXINE 112 MCG TAB PO SCH (06:11)
[2019-11-21] MEDS: METOPROLOL TARTRATE 25 MG TAB PO SCH ×2 (06:14→20:51)
[2019-11-21] MEDS: ASPIRIN 81 MG PO SCH ×2 (06:14→06:18)
--- NOTE | 2019-11-21 13:16 | P.HP ---
Psychiatric H&P - . H&P Date: 11/21/19 History & Physical: IDENTIFYING DATA: The patient is a 74-year-old female who was transferred from the medical unit where she observe since she had recently traveled to [place] [facility] to [place]. HISTORY OF PRESENT ILLNESS: I interviewed the patient, review 2 letters (1 written by her daughter Saloni Marquez and another by [facility] social work msw) and spoke with her daughter briefly telephone. Most of the information came from her daughter's letter and our brief telephone conversation. She gave a disjointed, disorganized and digressive explanation as to the reason for hospitalization. She talked about "uncle Jason" and "cousin Asmita" expressing concerns about her well-being. During her digressive and vague monologue she belittled friends and family and minimized their concern. See essentially provided no substantial information about the reason for this hospitalization. However, her chart contain information supplied by the social work msw and her daughter. The social work msw documented that the mobile crisis unit received a call from the [employer] regarding the patient. The [employer] received 2 calls from her [id number] family requesting a wellness check. On 11/17/2019 the police found her confused at her next next door neighbors. Mobile crisis responded to her home at 6:15 PM. She came to the door wearing only a T-shirt. She was unaware of the time and thought it was morning. They describe her speech is tangential. She would not respond directly to questions she was not oriented to time of day. She sometimes spoke softly and politely and a Japanese accent, at other times she spoke and at ohter times spoke what appeared to be another language. She yelled at the social work msw for interrupting her. Her face became red she stood up in a threatening manner and said "if you interrupt me again, I will put you a cauldron scalding hot water." The social work msw noticed that she had nails randomly pounded into the wall. The back of her nightgown was stained with urine and a love seat was soaked with a liquid. Her hair was dirty and not kept. She mentioned that she was and was ready to deliver but could not due to a conspiracy were "doctors sewn me up." The letter from her daughter was dated 11/18/2019 and 09/06/2018. Her daughter described 40 year history of psychiatric illness with multiple involuntary voluntary hospitalization. It appears that her last involuntary commitment was in December 2018. According to her daughter, she had repeatedly defied treatment order resulting in re-hospitalizations. Past diagnoses include schizophrenia sk ills, schizophreniform psychosis and bipolar disorder. The daughter describes the condition as progressive, recurrent and episodic. Past symptoms include errors in thoughts and perceptions, perseveration on a single topic, disrupted sleep and lack of sleep, impaired concentration, attention and judgment, poor nutrition, whispering and partial sentences, difficulty responding to open-ended questions, decrease in self-care, paranoia and delusions, verbally aggressive, giggling inappropriately, mumbling to herself, and inappropriate exposure feelings and catatonia. PAST PSYCHIATRIC HISTORY: According to her daughter, this is her fifth admission in the last 2-1/2 years and approximately her 10th involuntary psychiatric hospitalization. Her daughter wrote that not all of her psychotic breaks resulted in hospitalization. Her was a foam machine operator and he often sought and obtained psychiatric treatment and various antipsychotic medications for her. Her with work with her psychiatrist of 19 years to manage her as a outpatient. The patient alleges that she's been hospitalized "for 5 times .... Maybe more." She denies that she is currently receiving psychiatric treatment or take psychotropic medications. According to information provided by her daughter her previous psychiatrist in [place] [facility] with Asmita Rodrigues. PAST MEDICAL HISTORY: Hypertension, hyperlipidemia, hypothyroidism ALLERGIES: Aripiprazole, Lamictal, zolpidem SUBSTANCE USE HISTORY: She denied history of drug and alcohol use problems FAMILY PSYCHIATRIC/SUBSTANCE USE HISTORY: She talked suicides and her distant family and her cousin being prescribed Zyprexa. One daughter has a history of alcohol use problems. LEGAL HISTORY: She denied legal problems. Daughter has durable power for financial. SOCIAL HISTORY: She is born and raised in [facility]. They were for 44 years. Her in 2014. She has 2 daughters and 3 grandchildren. She lived most of her adult life in [place] [facility]. Daughters were unsuccessful in obtaining guardianship in [facility]. She moved to [facility] to be closer to family. MENTAL STATUS EXAM: She presented as a disheveled 74-year-old female who was euphoric, giddy and flirtatious. She made eye contact and appeared to attend to the interview. She had no distinguishing features or prominent physical abnormalities. She had a elated facial expression. She was alert and oriented to person and place. She showed no abnormality of psychomotor activity. She was not restless or agitated. She had a slow but steady gait. Her speech was spontaneous with increased rate and rhythm. She had no articulation difficulties. Her affect was elevated and appropriate. She denied suicidal ideation, wishes or homicidal ideation. She denied depressive cognitions such as hopelessness, helplessness or worthlessness. She She ruminated over the circumstances that brought her to the hospital and expressed fragmented paranoid ideation and delusional beliefs. Her thinking was concrete but her associations were logical coherent and logical. She did not demonstrate clang associations or neologisms. She denied hallucinations and did not appear to be responding to internal stimuli. Global impression of intellect is average to above. She has limited insight or understanding of her mental illness and need for treatment. STRENGTHS: Stable housing, stable income, supportive family WEAKNESSES: Severe and persistent mental illness and poor compliance with mental health treatment IMPRESSION: She is a 74-year-old female with a 40+ year history of a psychiatric unit illness characterized by a waxing and waning of symptoms that resulted in both involuntary and voluntary hospitalizations. According to her family, her illness has become more progressive and difficult to treat and she has become more and more noncompliant with treatment. She presents with elevated mood, disorganized thinking, grandiosity and paranoia. She likely has a bipolar illness but I can't exclude a schizoaffective disorder or a schizophrenia. She should be treated inpatient basis with combination of psychopharmacology and multimodal therapy. I also do not believe that she is able to give consent for treatment and will pursue involuntary hospitalization. PRINCIPLE DIAGNOSIS: Bipolar disorder most recent episode manic with psychotic features, rule out schizoaffective disorder, rule out schizophrenia, poor compliance with treatment RECOMMENDATION: Admitted to the psychiatric unit. Pursue involuntary hospita lization. Consult medicine for initial physical exam and medical history. cathead worker completed initial psychosocial assessment and coordinate discharge and aftercare services. Geodon 20 mg IM twice a day when necessary for agitation and/or Ativan 1 mg by mouth 3 times a day when necessary for anxiety or agitation. Encourage participation in therapeutic groups and activities as tolerated. Evaluate clinical status response to treatment daily basis. Allergies Allergy/AdvReac Type Severity Reaction Status Date / Time aripiprazole [From [facility]] Allergy Unknown Verified 11/20/19 14:35 lamotrigine Allergy Rash/Hives Verified 11/18/19 08:53 zolpidem AdvReac Unknown Verified 11/18/19 08:53 Vital Signs Temp 98.6 F 11/21/19 06:10 Pulse 66 11/21/19 06:10 Resp 14 11/21/19 06:10 BP 178/96 11/21/19 06:10 Pulse Ox 98 11/20/19 14:21 Intake & Output 11/20/19 11/21/19 11/21/19 18:59 06:59 18:59 Weight 76.113 kg 11/21/19 10:04 11/21/19 11:23 11/21/19 13:08
--- NOTE | 2019-11-21 14:55 | P.CONS ---
History of Present Illness - Reason for Consult Medical clearance - History of Present Illness Patient was transferred from my service to psychiatric floor after she completed 14 day isolation because of her travel to [facility]. Patient was initially admitted for Agitation and psychosis. Patient is fever no chills, denied any dysuria cough no evidence of infection at this time Review of Systems REVIEW OF SYSTEMS: CONSTITUTIONAL: No fever, no malaise, no fatigue. HEENT: No recent visual problems or hearing problems. Denied any sore throat. CARDIOVASCULAR: No chest pain, orthopnea, PND, no palpitations, no syncope. PULMONARY: No shortness of breath, no cough, no hemoptysis. GASTROINTESTINAL: No diarrhea, no nausea, no vomiting, no abdominal pain. NEUROLOGICAL: No headaches, no weakness, no numbness. HEMATOLOGICAL: Denies any bleeding or petechiae. GENITOURINARY: Denies any burning micturition, frequency, or urgency. MUSCULOSKELETAL/RHEUMATOLOGICAL: Denies any joint pain, swelling, or any muscle pain. ENDOCRINE: Denies any polyuria or polydipsia. The rest of the 14-point review of systems is negative. Past Medical History Past Medical History: Hyperlipidemia, Thyroid Disorder History of Any Multi-Drug Resistant Organisms: None Reported Past Surgical History: Hysterectomy Smoking Status: Never smoker Medications and Allergies Home Medications Medication Instructions Recorded Confirmed Type Aspirin [Adult Low Dose Aspirin EC] 81 mg PO DAILY 11/18/19 11/20/19 History Levothyroxine Sodium 112 mcg PO DAILY 11/18/19 11/20/19 History Metoprolol Tartrate [Lopressor] 25 mg PO BID 11/18/19 11/20/19 History Multivitamins, Thera [Multivitamin 1 tab PO W/SUPPER 11/18/19 11/20/19 History (formulary)] Allergies Allergy/AdvReac Type Severity Reaction Status Date / Time aripiprazole [From Abilify] Allergy Unknown Verified 11/20/19 14:35 lamotrigine Allergy Rash/Hives Verified 11/18/19 08:53 zolpidem AdvReac Unknown Verified 11/18/19 08:53 Physical Exam Vitals: Vital Signs Temp Pulse Pulse Resp BP BP 11/21/19 06:10 98.6 F 66 14 178/96 11/20/19 20:40 98.5 F 77 18 159/94 PHYSICAL EXAMINATION: GENERAL: The patient is alert and oriented x3, not in any acute distress. Well developed, well nourished. HEENT: Pupils are round and equally reacting to light. EOMI. No scleral icterus. No conjunctival pallor. Normocephalic, atraumatic. No pharyngeal erythema. No thyromegaly. CARDIOVASCULAR: S1 and S2 present. No murmurs, rubs, or gallops. PULMONARY: Chest is clear to auscultation, no wheezing or crackles. ABDOMEN: Soft, nontender, nondistended, normoactive bowel sounds. No palpable organomegaly. MUSCULOSKELETAL: No joint swelling or deformity. EXTREMITIES: No cyanosis, clubbing, or pedal edema. NEUROLOGICAL: Gross neurological examination did not reveal any focal deficits. SKIN: No rashes. Assessment and Plan Plan: Agitation psychosis critical schizophrenia management as per psychiatry -Is similar bacteria will not require an antibiotic -Hyperthyroidism -Hyperlipidemia -Hypertension For above-mentioned chronic medical problems patient was resumed on appropriate home medications and the will follow the patient only on as-needed basis
[2019-11-21] MEDS: MULTIVITAMINS, THERA 1 EACH TAB PO SCH (17:16)
[2019-11-22] MEDS: METOPROLOL TARTRATE 25 MG TAB PO SCH ×2 (08:27→21:09)
[2019-11-22] MEDS: ASPIRIN 81 MG PO SCH (08:27)
[2019-11-22] MEDS: LEVOTHYROXINE 112 MCG TAB PO SCH (08:27)
--- NOTE | 2019-11-22 11:43 | P.PN ---
Progress Note - Text Progress Note Date: 11/22/19 Interval History: Patient was seen near the nurse's desk and was directable and agreeable to speak with automatic typewriter inspector in the office. Patient was alert and oriented 3 today. Patient rambled and was illogical at times and gave a roundabout answer was circumstantial/tangential about her reasons for coming into the hospital. She states that she was petitioned inappropriately. Patient displayed poor insight and judgment into her mental illness and states that she was treated by her " who is Dr. Jones and Serene Lonnie". She states that her mood is "fine" however is incongruent and laughs at times. Patient answered questions appropriately. She states that she is sleeping well at night however states that she is hearing "the staff" at night when she is asked about voices. At this time patient denies any suicidal or homical ideations, intent or plan. Patient denies any visual hallucinations. Patient endorsed delusions of her neighbors coming after her and wanting to hurt her. Patient denies any side effects from the medications at this time. Mental Status Exam: General Appearance: [Patient appears to be elderly, stated age is alert, difficult to redirect and bizarre at times. Fair hygiene and grooming wearing street clothing.] Behavior: [Patient is calmly seated without any agitated behavior.] Bizarre at times. Speech: Patient's speech is fluent and nonpressured. Rambles. Mood/Affect: Mood is "fine", affect is incongruent and constricted. Suicidality/Homicidality: Patient denies having any suicidal or homicidal ideation intent or plan. Perceptions: Patient denies any visual hallucinations and states that she hears "the staff" when asked about voices at night. Though content/process: Patient rambles, as illogical and disorganized in her thought content. Tangential/circumstantial Memory and concentration: AOX3, grossly intact for the purposes of this session Judgment and insight: Poor Assessment Psychosis unspecified, likely schizoaffective disorder versus schizophrenia. Plan: -Patient continues to meet criteria for inpatient psychiatric admission for symptom stabilization and safety. Patient has signed adult voluntary form and was placed in patient's chart. Patient did not sign for medications at this time. -Medications: We'll start Abilify 2.5 mg daily for mood stabilization/psychosis. We'll attempt to titrate up as tolerated and transition patient onto long- acting injection. -When necessary Geodon for agitation/aggression. -NRT -not need this patient does not smoke. -SW on board for discharge planning. Encouraged the patient to participate in milieu. If patient refuses to take medications will need to complete 2 certifications and petition to file for court.
[2019-11-22] MEDS ORDERED: ARIPiprazole 5 MG TAB PO SCH (11:45)
[2019-11-22] MEDS: MULTIVITAMINS, THERA 1 EACH TAB PO SCH (17:27)
[2019-11-23] MEDS: ZIPRASIDONE 20 MG VIAL IM PRN (00:59)
[2019-11-23] MEDS: LEVOTHYROXINE 112 MCG TAB PO SCH (06:37)
[2019-11-23] MEDS: ASPIRIN 81 MG PO SCH (08:44)
[2019-11-23] MEDS: METOPROLOL TARTRATE 25 MG TAB PO SCH ×2 (08:44→21:23)
--- NOTE | 2019-11-23 10:36 | P.PN ---
Progress Note - Text Progress Note Date: 11/23/19 Interval History: Patient was seen in her room sitting on her bed and claimed that she was "doing sudoku with my granddaughter" and was directable and agreeable to speak with law writer in the office. Patient was alert and oriented 3 today. Patient continues to ramble and was illogical during conversation. Patient was circumstantial/tangential with loose associations. Patient spoke about "not saying the right things" and also states that she does not do well on antipsychotics and gave a disorganized answer as to why. She continues to state that she is a "permanent resident of [place] because they have no sales tax" and also spoke about her "plan to get out of here". Patient displayed poor insight and judgment into her mental illness and continues to decline medications however states that she would like to try melatonin at nighttime for her sleep. She states that she did not sleep well last night. She states that her mood is "fine" however is incongruent and laughs at times. She continues to endorse hearing voices and states that "yes I hear them peripherally". At this time patient denies any suicidal or homical ideations, intent or plan. Patient denies any visual hallucinations. Mental Status Exam: General Appearance: Patient appears to be elderly, stated age is alert, difficult to redirect and bizarre and disorganized at times. Fair hygiene and grooming wearing street clothing. Behavior: Patient is calmly seated without any agitated behavior. Bizarre and inappropriate. Speech: Patient's speech is fluent and nonpressured. Rambles with loose associations. Mood/Affect: Mood is "fine", affect is incongruent and constricted. Suicidality/Homicidality: Patient denies having any suicidal or homicidal ideation intent or plan. Perceptions: Patient denies any visual hallucinations and states that she hears voices peripherally. Though content/process: Patient rambles, loose associations, illogical and disorganized in her thought content. Tangential/circumstantial Memory and concentration: AOX3, grossly intact for the purposes of this session Judgment and insight: Poor Assessment Psychosis unspecified, likely schizoaffective disorder versus schizophrenia. Plan: -Patient continues to meet criteria for inpatient psychiatric admission for symptom stabilization and safety. Patient has signed adult voluntary form and was placed in patient's chart. Patient did not sign for medications at this time. -Medications: We'll continue with Prolixin 2.5 mg daily for mood stabilization/psychosis as patient is not taking her medications. We'll attempt to titrate up as tolerated and transition patient onto long-acting injection. I added melatonin 3 mg daily at bedtime for sleep. -When necessary Geodon for agitation/aggression. -NRT -not need this patient does not smoke. -SW on board for discharge planning. Encouraged the patient to participate in jj. Patient is continuing to refuse medications and treatment and will complete 2 certifications and petition to be filed to court today.
[2019-11-23] MEDS: MULTIVITAMINS, THERA 1 EACH TAB PO SCH (17:30)
[2019-11-23] MEDS: MELATONIN 3 MG TABLET PO SCH (21:18)
[2019-11-24] MEDS: LEVOTHYROXINE 112 MCG TAB PO SCH (07:03)
[2019-11-24] MEDS: ASPIRIN 81 MG PO SCH (08:50)
[2019-11-24] MEDS: METOPROLOL TARTRATE 25 MG TAB PO SCH ×2 (08:51→09:12)
--- NOTE | 2019-11-24 09:34 | P.PN ---
Progress Note - Text Progress Note Date: 11/24/19 Interval History: Patient was seen near the medication window and was responding to internal sti muli speaking to herself and reciting different verses and was directable and agreeable to speak with content writer in the office. Patient was alert and oriented 3 today. Patient continues to ramble and was illogical during conversation and is difficult to redirect. Patient was circumstantial/tangential with loose associations. Patient spoke about wanting to have her eyedrops ordered and states that her brother performed the surgery on her and also states that she needs the eyedrops 2 "look at musical notes". She continues to give inappropriate and disorganized answers and appears to be exhibiting some paranoia in her behaviors. Patient displayed poor insight and judgment into her mental illness. She states that she slept well last night on the melatonin. She states that her mood is "ok". She continues to endorse hearing voices. At this time patient denies any suicidal or homical ideations, intent or plan. Patient denies any visual hallucinations. 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 Mental Status Exam: General Appearance: Patient appears to be elderly, stated age is alert, difficult to redirect and bizarre and disorganized at times. Responding to internal stimuli. Fair hygiene and grooming wearing street clothing. Behavior: Patient is calmly seated without any agitated behavior. Bizarre and inappropriate. Speech: Patient's speech is fluent and nonpressured. Rambles with loose associations. Mood/Affect: Mood is "ok", affect is incongruent and constricted. Suicidality/Homicidality: Patient denies having any suicidal or homicidal ideation intent or plan. Perceptions: Patient denies any visual hallucinations and states that she hears voices peripherally. Though content/process: Patient rambles, loose associations, illogical and disorganized in her thought content. Tangential/circumstantial Memory and concentration: AOX3, grossly intact for the purposes of this session Judgment and insight: Poor Assessment: Psychosis unspecified, likely schizoaffective disorder versus schizophrenia. Plan: -Patient continues to meet criteria for inpatient psychiatric admission for sym ptom stabilization and safety. Patient has signed adult voluntary form and was placed in patient's chart. Patient did not sign for medications at this time. -Medications: We'll continue with Prolixin 2.5 mg daily for mood stabilization/psychosis as patient is not taking her medications. We'll attempt to titrate up as tolerated and transition patient onto long-acting injection. I added melatonin 3 mg daily at bedtime for sleep. -When necessary Geodon for agitation/aggression. -NRT -not need this patient does not smoke. -SW on board for discharge planning. Encouraged the patient to participate in milieu. Patient is continuing to refuse medications and court process has been initiated, waiting for deferral and court date.
[2019-11-24] MEDS: ARTIFICIAL TEARS-HYPROMELLOSE DROPS 15 ML BTL BOTH EYES SCH (10:11)
[2019-11-24] MEDS: MULTIVITAMINS, THERA 1 EACH TAB PO SCH (16:55)
[2019-11-24] MEDS ORDERED: ZIPRASIDONE 20 MG VIAL IM ONE ×2 (17:29→17:35)
[2019-11-24] MEDS: ZIPRASIDONE 20 MG VIAL IM PRN (17:33)
[2019-11-24] MEDS: MELATONIN 3 MG TABLET PO SCH (23:07)
[2019-11-25] MEDS: METOPROLOL TARTRATE 25 MG TAB PO SCH ×3 (00:13→20:59)
[2019-11-25] MEDS: LEVOTHYROXINE 112 MCG TAB PO SCH (06:23)
[2019-11-25] MEDS: ARTIFICIAL TEARS-HYPROMELLOSE DROPS 15 ML BTL BOTH EYES SCH (07:59)
[2019-11-25] MEDS: ASPIRIN 81 MG PO SCH (08:00)
--- NOTE | 2019-11-25 09:51 | P.PN ---
Progress Note - Text Progress Note Date: 11/25/19 Interval History: Patient was seen coloring in a picture during group and was directable and agr eeable to speak with teletypewriter operator in the office. Patient appeared to have improved hygiene and grooming today. She continues to ramble and was illogical during conversation and became defensive with the teletypewriter operator and also a argumentative. Patient states that she received a "shot" yesterday in order to go to sleep referring to the Geodon when necessary. She states that she continues to not need medications and states that she would like to leave the hospital "come hell or high water". Patient was circumstantial/tangential with loose associations. Patient spoke about not needing medications as "my went through that already and it's not needed". She continues to give inappropriate and disorganized at times with her answers. She asked teletypewriter operator if teletypewriter operator could give her a ride home today in his car. Patient displayed poor insight and judgment into her mental illness. She states that her mood is "fine". She continues to endorse hearing voices. At this time patient denies any suicidal or homical ideations, intent or plan. Patient denies any visual hallucinations. Patient is continuing to refuse her medications. Mental Status Exam: General Appearance: Patient appears to be elderly, stated age is alert, difficult to redirect and bizarre and disorganized at times. Responding to internal stimuli. Fair hygiene and grooming wearing street clothing. Behavior: Patient is calmly seated without any agitated behavior. Bizarre and inappropriate. Speech: Patient's speech is fluent and nonpressured. Rambles with loose associations. Mood/Affect: Mood is "fine", affect is incongruent and constricted. Suicidality/Homicidality: Patient denies having any suicidal or homicidal ideation intent or plan. Perceptions: Patient denies any visual hallucinations and states that she hears voices peripherally. Though content/process: Patient rambles, loose associations, illogical and disorganized in her thought content. Tangential/circumstantial Memory and concentration: AOX3, grossly intact for the purposes of this session Judgment and insight: Poor Assessment: Psychosis unspecified, likely schizoaffective disorder versus schizophrenia. Plan: -Patient continues to meet criteria for inpatient psychiatric admission for symptom stabilization and safety. Patient has signed adult voluntary form and was placed in patient's chart. Patient did not sign for medications at this time. -Medications: We'll continue with Prolixin 2.5 mg daily for mood stabilization/psychosis as patient is not taking her medications. We'll attempt to titrate up as tolerated and transition patient onto long-acting injection. Increased melatonin 5 mg daily at bedtime for sleep. -When necessary Geodon for agitation/aggression. -NRT -not need this patient does not smoke. -SW on board for discharge planning. Encouraged the patient to participate in milieu. Patient is continuing to refuse medications and deferral date is set for today with full court hearing on November 30 at 9:30 AM.
[2019-11-25] MEDS: MULTIVITAMINS, THERA 1 EACH TAB PO SCH (18:16)
[2019-11-25] MEDS: MELATONIN 5 MG TABLET PO SCH (20:59)
[2019-11-26] MEDS: LEVOTHYROXINE 112 MCG TAB PO SCH (05:21)
[2019-11-26] MEDS: METOPROLOL TARTRATE 25 MG TAB PO SCH ×2 (08:18→21:23)
[2019-11-26] MEDS: ASPIRIN 81 MG PO SCH (08:18)
[2019-11-26] MEDS: ARTIFICIAL TEARS-HYPROMELLOSE DROPS 15 ML BTL BOTH EYES SCH (08:18)
--- NOTE | 2019-11-26 10:07 | P.PN ---
Progress Note - Text Progress Note Date: 11/26/19 Interval History: Patient was seen wandering the hallways and was directable and agreeable to sp eak with policy writer typist in the office. Patient appeared to have improved hygiene and grooming today and appeared to have just come out of the shower. She continues to ramble and became hostile and argumentative with policy writer typist. Patient was loose in associations and illogical in her thought process. She spoke about her struggles with her ex- and her medications and states that she does not need medications any longer. She continues to only take her Synthroid. Patient was circumstantial/tangential with loose associations. She continues to give inappropriate and disorganized at times with her answers and is difficult to redirect. Patient displayed poor insight and judgment into her mental illness. She continues to endorse hearing voices however is not able to describe them. At this time patient denies any suicidal or homical ideations, intent or plan. Patient denies any visual hallucinations. Mental Status Exam: General Appearance: Patient appears to be elderly, stated age is alert, d ifficult to redirect and bizarre and disorganized. Fair hygiene and grooming wearing street clothing. Behavior: Patient is calmly seated without any agitated behavior. Bizarre and inappropriate. Speech: Patient's speech is fluent and nonpressured. Rambles with loose associations. Mood/Affect: Mood is "ok", affect is incongruent and constricted. Suicidality/Homicidality: Patient denies having any suicidal or homicidal ideation intent or plan. Perceptions: Patient denies any visual hallucinations and states that she hears voices peripherally. Though content/process: Patient rambles, loose associations, illogical and disorganized in her thought content. Tangential/circumstantial Memory and concentration: AOX3, grossly intact for the purposes of this session Judgment and insight: Poor Assessment: Psychosis unspecified, likely schizoaffective disorder versus schizophrenia. Plan: -Patient continues to meet criteria for inpatient psychiatric admission for symptom stabilization and safety. Patient has signed adult voluntary form and was placed in patient's chart. Patient did not sign for medications at this time. -Medications: We'll continue with Prolixin 2.5 mg daily for mood s tabilization/psychosis as patient is continuing to not taking her medications. We'll attempt to titrate up as tolerated and transition patient onto long-acting injection. Continue with melatonin 5 mg daily at bedtime for sleep. -When necessary Geodon for agitation/aggression. -NRT -not need this patient does not smoke. -SW on board for discharge planning. Encouraged the patient to participate in milieu. Patient is continuing to refuse medications and full court hearing on November 30 at 9:30 AM.
[2019-11-26] MEDS: ZIPRASIDONE 20 MG VIAL IM PRN (13:55)
[2019-11-26] MEDS: MULTIVITAMINS, THERA 1 EACH TAB PO SCH (17:48)
[2019-11-26] MEDS: MELATONIN 5 MG TABLET PO SCH (21:23)
[2019-11-27] MEDS: ARTIFICIAL TEARS-HYPROMELLOSE DROPS 15 ML BTL BOTH EYES SCH ×2 (02:00→08:36)
[2019-11-27] MEDS: LEVOTHYROXINE 112 MCG TAB PO SCH (05:34)
[2019-11-27] MEDS: METOPROLOL TARTRATE 25 MG TAB PO SCH ×2 (08:38→21:03)
[2019-11-27] MEDS: ASPIRIN 81 MG PO SCH (08:38)
--- NOTE | 2019-11-27 12:13 | P.PN ---
Progress Note - Text Progress Note Date: 11/27/19 Interval history: [facility]. She is agreeable to come to the interview room. She relays that she doesn't need Prolixin and does not want to take any psychotropic medication. Mental status exam: She is alert with rapid and pressured speech. If I interject with a question she often does not answer the question, becomes upset relaying that I interrupted her. She does not make any statements about thoughts of harm to self or others. Her thought processes show disorganization. She does not seem to verbalize any active hallucinations. She leaves the interview on her own accord when I again brought up the idea of psychotropic medication. Plan: We'll continue to monitor patient's status and monitor compliance with medications. Continue to monitor her ongoing response to treatment.
[2019-11-27] MEDS: MULTIVITAMINS, THERA 1 EACH TAB PO SCH (17:14)
[2019-11-27] MEDS: MELATONIN 5 MG TABLET PO SCH (21:06)
[2019-11-28] MEDS: MELATONIN 5 MG TABLET PO SCH ×3 (01:59→22:33)
[2019-11-28] MEDS: LEVOTHYROXINE 112 MCG TAB PO SCH (05:42)
[2019-11-28] MEDS: METOPROLOL TARTRATE 25 MG TAB PO SCH ×2 (08:26→20:59)
[2019-11-28] MEDS: ARTIFICIAL TEARS-HYPROMELLOSE DROPS 15 ML BTL BOTH EYES SCH ×2 (08:26→22:32)
[2019-11-28] MEDS: ASPIRIN 81 MG PO SCH (08:27)
--- NOTE | 2019-11-28 12:49 | P.PN ---
Progress Note - Text Progress Note Date: 11/27/19 Interval history: Patient is seen again in cross coverage today. She is found in the dining room. She declines meeting with me today relays that she is eating lunch. Mental status exam: She is seen in the dining room. She declines meeting with me today relays she is eating lunch. She was not exhibiting any significant agitation. When staff approached her to meet with me before I did she also declined per staff. Plan: Monitor her ongoing response to treatment and monitor for any medication side effects, monitor for compliance with treatment.
[2019-11-28] MEDS: MULTIVITAMINS, THERA 1 EACH TAB PO SCH (16:07)
[2019-11-29] MEDS: LEVOTHYROXINE 112 MCG TAB PO SCH (06:13)
[2019-11-29] MEDS: ASPIRIN 81 MG PO SCH (08:25)
[2019-11-29] MEDS: METOPROLOL TARTRATE 25 MG TAB PO SCH ×3 (08:25→20:57)
[2019-11-29] MEDS: ARTIFICIAL TEARS-HYPROMELLOSE DROPS 15 ML BTL BOTH EYES SCH (08:26)
--- NOTE | 2019-11-29 10:13 | P.PN ---
Progress Note - Text Progress Note Date: 11/29/19 Interval History: Patient was seen sitting in on group and was directable and agreeable to speak with typewriters functional tester in the office. Patient continues to be bizarre and inappropriate during conversation. Patient was carrying around a book and also a tangled up and knotted bathrobe with other materials inside.. When asked about it patient states that she is carrying Kleenex and a pen. Patient claims that "I don't regard you are as an investment, you're wasting my time". She continues to be hostile and argumentative with typewriters functional tester. Patient continues to be bizarre and disorganized in her thought content and process. She was loose in associations and illogical in her thought process. She continues to believe that she does not need to take her medications. Patient displayed poor insight and judgment into her mental illness. She continues to endorse hearing voices however is not able to describe them. At this time patient denies any suicidal or homical ideations, intent or plan. Patient denies any visual hallucinations. Mental Status Exam: General Appearance: Patient appears to be elderly, stated age is alert, difficult to redirect and bizarre and disorganized. Fair hygiene and grooming wearing street clothing. Behavior: Patient is calmly seated without any agitated behavior. Bizarre and inappropriate. Speech: Patient's speech is fluent and nonpressured. Rambles with loose associations. Mood/Affect: Mood is "fine", affect is incongruent and constricted. Suicidality/Homicidality: Patient denies having any suicidal or homicidal ideation intent or plan. Perceptions: Patient denies any visual hallucinations and states that she hears voices peripherally. Though content/process: Patient rambles, loose associations, illogical and disorganized in her thought content. Tangential. Memory and concentration: AOX3, grossly intact for the purposes of this session Judgment and insight: Poor Assessment: Psychosis unspecified, likely schizoaffective disorder versus schizophrenia. Plan: -Patient continues to meet criteria for inpatient psychiatric admission for symptom stabilization and safety. Patient has signed adult voluntary form and was placed in patient's chart. Patient did not sign for medications at this time. -Medications: We'll continue with Prolixin 2.5 mg daily for mood stabilization/psychosis as patient is continuing to not taking her medications. We'll attempt to titrate up as tolerated and transition patient onto long-acting injection. Continue with melatonin 5 mg daily at bedtime for sleep. -When necessary Geodon for agitation/aggression. -NRT -not need this patient does not smoke. -SW on board for discharge planning. Encouraged the patient to participate in milieu. Patient is continuing to refuse medications and full court hearing on November 30 at 9:30 AM.
[2019-11-29] MEDS: MULTIVITAMINS, THERA 1 EACH TAB PO SCH (17:30)
[2019-11-29] MEDS: MELATONIN 5 MG TABLET PO SCH (20:56)
[2019-11-30] MEDS: LEVOTHYROXINE 112 MCG TAB PO SCH (05:32)
[2019-11-30] MEDS: ARTIFICIAL TEARS-HYPROMELLOSE DROPS 15 ML BTL BOTH EYES SCH (08:39)
[2019-11-30] MEDS: METOPROLOL TARTRATE 25 MG TAB PO SCH ×3 (08:39→21:20)
[2019-11-30] MEDS: ASPIRIN 81 MG PO SCH (08:39)
--- NOTE | 2019-11-30 10:16 | P.PN ---
Progress Note - Text Progress Note Date: 11/30/19 Interval History: Patient was seen near the nurse's desk and was responding to internal stimuli, speaking to herself and when approached by travel writer patient was initially hesitant to speak to travel writer however was directable to go to the office. Patient was inside the office became paranoid and attempted to leave during conversation. Patient stated that "I don't like that other people are listening" and appeared to be very suspicious of travel writer today. She continues to be religiously preoccupied and spoke about the holy spirit. She continues to be bizarre and inappropriate during conversation. She was disorganized in her thought content and process and was tangential with loose associations. She continues to believe that she does not need to take her medications and has been refusing her Prolixin. Patient continues to display poor insight and judgment into her mental illness. Patient apparently did not sleep well last night and wandered into patient's rooms. She continues to endorse hearing voices however is not able to describe them. At this time patient denies any suicidal or homical ideations, intent or plan. Patient denies any visual hallucinations. Mental Status Exam: General Appearance: Patient appears to be elderly, stated age is alert, difficult to redirect and bizarre and disorganized. Fair hygiene and grooming wearing street clothing. Behavior: Patient is calmly seated without any agitated behavior. Bizarre and inappropriate. Responding to internal stimuli. Speech: Patient's speech is fluent and nonpressured. Rambles with loose associations. Mood/Affect: Mood is "ok", affect is incongruent and constricted. Suicidality/Homicidality: Patient denies having any suicidal or homicidal ideation intent or plan. Perceptions: Patient denies any visual hallucinations and states that she hears voices peripherally. Though content/process: Patient rambles, loose associations, illogical and disorganized in her thought content. Tangential. Memory and concentration: AOX3, grossly intact for the purposes of this session Judgment and insight: Poor Assessment: Schizoaffective disorder Plan: -Patient continues to meet criteria for inpatient psychiatric admission for symptom stabilization and safety. Patient has signed adult voluntary form and was placed in patient's chart. Patient did not sign for medications at this time. -Medications: We'll continue with Prolixin 2.5 mg daily for mood stabilization/psychosis as patient is continuing to not taking her medications. We'll attempt to titrate up as tolerated and transition patient onto long-acting injection. Increased melatonin 10 mg daily at bedtime for sleep. -When necessary Geodon for agitation/aggression. -NRT -not need this patient does not smoke. -SW on board for discharge planning. Encouraged the patient to participate in milieu. Patient is continuing to refuse medications and full court hearing on November 30 at 9:30 AM.
[2019-11-30] MEDS: MULTIVITAMINS, THERA 1 EACH TAB PO SCH (17:55)
[2019-11-30] MEDS: MELATONIN 5 MG TABLET PO SCH (21:20)
[2019-12-01] MEDS: ZIPRASIDONE 20 MG VIAL IM PRN ×2 (00:28→15:05)
[2019-12-01] MEDS: LEVOTHYROXINE 112 MCG TAB PO SCH (05:45)
[2019-12-01] MEDS: ARTIFICIAL TEARS-HYPROMELLOSE DROPS 15 ML BTL BOTH EYES SCH (09:15)
[2019-12-01] MEDS: ASPIRIN 81 MG PO SCH (09:16)
[2019-12-01] MEDS: METOPROLOL TARTRATE 25 MG TAB PO SCH ×2 (09:16→20:38)
--- NOTE | 2019-12-01 11:35 | P.PN ---
Progress Note - Text Progress Note Date: 12/01/19 Interval History: Patient was wandering the hallways and speaking with another patient however w hen she was approached by junior underwriter patient appeared to be paranoid and dismissive/hostile towards junior underwriter and told him "I don't want to talk to you anymore" and walked away from junior underwriter. Patient did not want to engage with junior underwriter at this time and refused to speak to him in the office. Mental Status Exam: General Appearance: Patient appears to be elderly, stated age is alert, difficult to redirect and bizarre and disorganized. Fair hygiene and grooming wearing street clothing. Behavior: Patient is wondering the hallways and was Bizarre and Responding to internal stimuli. Speech: Patient's speech is fluent and nonpressured. Rambles with loose associations. Paranoid ideations. Mood/Affect: Unable to assess Suicidality/Homicidality: Unable to assess Perceptions: Unable to assess Though content/process: Paranoid ideations. Memory and concentration: Unable to assess Judgment and insight: Poor Assessment: Schizoaffective disorder Plan: -Patient continues to meet criteria for inpatient psychiatric admission for symptom stabilization and safety. Patient has signed adult voluntary form and was placed in patient's chart. Patient did not sign for medications at this time. -Medications: We'll continue with Prolixin 2.5 mg daily for mood stabilization/psychosis as patient is continuing to not taking her medications. We'll attempt to titrate up as tolerated and transition patient onto long-acting injection. Continue with melatonin 10 mg daily at bedtime for sleep. -When necessary Geodon for agitation/aggression. -NRT -not need this patient does not smoke. -SW on board for discharge planning. Encouraged the patient to participate in milieu. Patient is continuing to refuse medications and full court hearing this morning and will await court order for treatment.
[2019-12-01] MEDS: MULTIVITAMINS, THERA 1 EACH TAB PO SCH (17:15)
[2019-12-01] MEDS: MELATONIN 5 MG TABLET PO SCH (20:39)
[2019-12-02] MEDS: ZIPRASIDONE 20 MG VIAL IM PRN (00:05)
[2019-12-02] MEDS: LEVOTHYROXINE 112 MCG TAB PO SCH (05:54)
[2019-12-02] MEDS: ARTIFICIAL TEARS-HYPROMELLOSE DROPS 15 ML BTL BOTH EYES SCH (08:12)
[2019-12-02] MEDS: METOPROLOL TARTRATE 25 MG TAB PO SCH ×2 (08:12→11:37)
[2019-12-02] MEDS: ASPIRIN 81 MG PO SCH (08:12)
[2019-12-02] MEDS ORDERED: flUPHENAZine 2.5 MG/ML (MDV) 10 ML VIAL IM ONE (10:08)
--- NOTE | 2019-12-02 10:13 | P.PN ---
Progress Note - Text Progress Note Date: 12/02/19 Interval History: Patient was seen near the nurse's desk and was responding to internal stimuli and was directable and agreeable to speak to typewriter ribbon winder in the office. Patient continues to ramble and be illogical and floridly psychotic. Patient was religiously preoccupied and spoke about "spirits and demons" and continues to have poor judgment in terms medication in her treatment. Patient continues to be focused on discharge and I asked "where should I go"., Patient continues to endorse paranoia and was uncooperative and difficult to redirect during conversation. Patient continues to be refusing her medications and had court yesterday however did not participate in court. She continues to endorse hearing voices however is not able to describe them. At this time patient denies any suicidal or homical ideations, intent or plan. Patient denies any visual hallucinations. Mental Status Exam: General Appearance: Patient appears to be elderly, stated age is alert, difficult to redirect and bizarre and disorganized. Fair hygiene and grooming wearing street clothing. Behavior: Patient is calmly seated without any agitated behavior. Bizarre. Responding to internal stimuli. Speech: Patient's speech is fluent and nonpressured. Rambles with loose associations. Mood/Affect: Mood is "ok", affect is incongruent and constricted. Suicidality/Homicidality: Patient denies having any suicidal or homicidal ideation intent or plan. Perceptions: Patient denies any visual hallucinations and states that she hears voices peripherally. Though content/process: Patient rambles, loose associations, illogical and disorganized in her thought content. Tangential. Memory and concentration: AOX3, grossly intact for the purposes of this session Judgment and insight: Poor Assessment: Schizoaffective disorder Plan: -Patient continues to meet criteria for inpatient psychiatric admission for symptom stabilization and safety. Patient has signed adult voluntary form and was placed in patient's chart. Patient did not sign for medications at this time. -Medications: We'll continue with Prolixin 2.5 mg daily for mood stabilization/psychosis as patient is continuing to not taking her medications. Ordered Prolixin IM when necessary in case patient refuses by mouth as per court order. We'll attempt to titrate up as tolerated and transition patient onto long-acting injection. Continue with melatonin 10 mg daily at bedtime for sleep. -When necessary Geodon for agitation/aggression. -NRT -not need this patient does not smoke. -SW on board for discharge planning. Encouraged the patient to participate in milieu. Patient received court order for treatment on 12/01/2019.
[2019-12-02] MEDS: MULTIVITAMINS, THERA 1 EACH TAB PO SCH (17:08)
[2019-12-02] MEDS: MELATONIN 5 MG TABLET PO SCH (21:38)
[2019-12-03] MEDS: METOPROLOL TARTRATE 25 MG TAB PO SCH ×5 (02:00→22:04)
[2019-12-03] MEDS ORDERED: BISACODYL 5 MG TABLET.DR PO PRN (02:01)
[2019-12-03] MEDS: LEVOTHYROXINE 112 MCG TAB PO SCH (05:35)
[2019-12-03] MEDS ORDERED: flUPHENAZine 2.5 MG/ML (MDV) 10 ML VIAL IM PRN (09:00)
[2019-12-03] MEDS: ARTIFICIAL TEARS-HYPROMELLOSE DROPS 15 ML BTL BOTH EYES SCH (09:02)
[2019-12-03] MEDS: ASPIRIN 81 MG PO SCH (09:02)
--- NOTE | 2019-12-03 11:17 | P.PN ---
Progress Note - Text Progress Note Date: 12/03/19 Interval History: Patient was seen sitting in her room on the side of her bed with the door closed in her book open. Patient was initially agreeable to speak to ghost writer and continues to ramble and be illogical in her thought content. Patient continues to be religiously preoccupied speaking of spirits and demons. Patient was tangential and loose in her associations however did show mild improvement in some directability in conversation. Patient continues to be focused on discharge and continues to have poor insight into her illness. Patient had poor sleep last night and continues to refuse her by mouth medications and required to Prolixin IM doses yesterday and today. Patient continues to endorse paranoia and abruptly ended the conversation with ghost writer telling him to get out of her room and shut the door. She continues to endorse hearing voices however is not able to describe them. At this time patient denies any suicidal or homical ideations, intent or plan. Patient denies any visual hallucinations. Mental Status Exam: General Appearance: Patient appears to be elderly, stated age is alert, difficult to redirect and bizarre and disorganized. Fair hygiene and grooming wearing street clothing. Behavior: Patient is calmly seated without any agitated behavior. Bizarre. Responding to internal stimuli. Speech: Patient's speech is fluent and nonpressured. Rambles with loose associations, mildly improving. Mood/Affect: Mood is "ok", affect is incongruent and constricted. Suicidality/Homicidality: Patient denies having any suicidal or homicidal ideation intent or plan. Perceptions: Patient denies any visual hallucinations and states that she hears voices peripherally. Though content/process: Patient rambles, loose associations, illogical and disorganized in her thought content. Tangential. Memory and concentration: AOX3, grossly intact for the purposes of this session Judgment and insight: Poor Assessment: Schizoaffective disorder Plan: -Patient continues to meet criteria for inpatient psychiatric admission for symptom stabilization and safety. Patient has signed adult voluntary form and was placed in patient's chart. Patient did not sign for medications at this time. -Medications: We'll increase Prolixin 2.5 mg twice a day for mood stabilization /psychosis. To give Prolixin IM when necessary in case patient refuses by mouth as per court order. We'll attempt to titrate up as tolerated and transition patient onto long-acting injection. Continue with melatonin 10 mg daily at bedtime for sleep. Added trazodone 25 mg daily at bedtime for sleep. We'll consider adding Depakote over the weekend if needed. -When necessary Geodon for agitation/aggression. -NRT -not need this patient does not smoke. -SW on board for discharge planning. Encouraged the patient to participate in milieu. Patient received court order for treatment on 12/01/2019.
[2019-12-03] MEDS: MULTIVITAMINS, THERA 1 EACH TAB PO SCH (17:30)
[2019-12-03] MEDS ORDERED: OLANZapine 10 MG VIAL IM PRN (17:59)
[2019-12-03 19:00] LABS: Basophils % (A) 0 %; Eosinophils % (A) 0 %; HCT 46.4 % (34.0-46.0); HGB 15.3 gm/dL (11.4-16.0); Lymphocytes % (A) 13 %; MCH 29.4 pg (25.0-35.0); Mean Platelet Volume 6.9; Monocytes # (A) 0.4 k/uL (0-1.0); Monocytes % (A) 4 %; Neutrophils # (A) 6.5 k/uL (1.3-7.7); Neutrophils % (A) 81 %; Platelet Count 320 k/uL (150-450); RBC 5.21 m/uL (3.80-5.40)
[2019-12-03 19:16] LABS: Albumin 4.9 g/dL (3.5-5.0); Calcium 10.7 mg/dL (8.4-10.2); Potassium 4.6 mmol/L (3.5-5.1); Total Bilirubin 0.8 mg/dL (0.2-1.3); Total Protein 7.7 g/dL (6.3-8.2)
[2019-12-03] MEDS: MELATONIN 5 MG TABLET PO SCH ×2 (21:51→22:04)
[2019-12-03] MEDS: traZODone HCL 50 MG TAB PO SCH ×2 (21:52→22:05)
[2019-12-04] MEDS ORDERED: OLANZapine 10 MG VIAL IM STA (01:31)
[2019-12-04] MEDS ORDERED: OLANZapine 10 MG VIAL IM PRN (08:01)
--- NOTE | 2019-12-04 08:06 | P.PN ---
Progress Note - Text Progress Note Date: 12/04/19 Interval History: Patient was seen wandering the hallways with her one-to-one sitter however was not directable and appeared to be upset when approached by clinical writer. Patient stated to clinical writer "I don't want to talk to you leave me alone" and proceeded to walk with clinical writer. Patient did not sleep well last night according to nursing report and was agitated and psychotic and required 2 when necessary's yesterday of Zyprexa. Patient is continuing to refuse her by mouth Prolixin and requiring IM injection as per the court order. Mental Status Exam: General Appearance: Patient appears to be elderly, stated age is alert, difficult to redirect and bizarre and disorganized. Fair hygiene and grooming wearing street clothing. Behavior: Patient is calmly seated without any agitated behavior. Bizarre. Responding to internal stimuli. Speech: Patient's speech is fluent and nonpressured. Rambles with loose associations, mildly improving. Mood/Affect: Unable to assess. Suicidality/Homicidality: Unable to assess Perceptions: Unable to assess Though content/process: Patient rambles, loose associations, illogical and disorganized Memory and concentration: Unable to assess. Judgment and insight: Poor Assessment: Schizoaffective disorder Plan: -Patient continues to meet criteria for inpatient psychiatric admission for symptom stabilization and safety. Patient has signed adult voluntary form and was placed in patient's chart. Patient did not sign for medications at this time. -Medications: We'll continue with Prolixin 2.5 mg twice a day for mood stabilization/psychosis. To give Prolixin IM when necessary in case patient refuses by mouth as per court order. We'll attempt to titrate up as tolerated and transition patient onto long-acting injection. Continue with melatonin 10 mg daily at bedtime for sleep. I added Depakene 250mg BID for mood stabilization/agitation. -When necessary Zyprexa IM every 6 hours for agitation/aggression. -NRT -not need this patient does not smoke. -SW on board for discharge planning. Encouraged the patient to participate in milieu. Patient received court order for treatment on 12/01/2019.
[2019-12-04] MEDS: ARTIFICIAL TEARS-HYPROMELLOSE DROPS 15 ML BTL BOTH EYES SCH ×3 (09:03→14:56)
[2019-12-04] MEDS: LEVOTHYROXINE 112 MCG TAB PO SCH (09:03)
[2019-12-04] MEDS: VALPROIC ACID ORAL SOLN 250 MG/5 ML CUP PO SCH ×2 (09:03→21:20)
[2019-12-04] MEDS: ASPIRIN 81 MG PO SCH (09:03)
[2019-12-04] MEDS: METOPROLOL TARTRATE 25 MG TAB PO SCH ×2 (09:03→21:20)
[2019-12-04] MEDS: flUPHENAZine 2.5 MG/ML (MDV) 10 ML VIAL IM PRN (10:15)
[2019-12-04] MEDS: MULTIVITAMINS, THERA 1 EACH TAB PO SCH (17:30)
[2019-12-04] MEDS: MELATONIN 5 MG TABLET PO SCH (21:21)
--- NOTE | 2019-12-05 08:46 | P.PN ---
Progress Note - Text Progress Note Date: 12/05/19 Interval History: Patient was seen wandering the hallways with her one-to-one sitter 's morning. Patient appeared to be more directable and slightly calmer. She was agreeable to speak in her room. Patient continues to be preoccupied with being discharged from the unit and stated to law writer "you can't give any medications without my consent". It was explained to her about the court process in her treatment order at this time. Patient was more coherent and more goal oriented and logical however continues to be tangential/circumstantial and illogical at times. She stated that she did sleep better last night. She did take 1 by mouth Prolixin yesterday however didn't need the injection for the other dose. At this time patient denies any suicidal or homicidal ideations and denies any auditory or visual hallucinations. Patient is continuing to endorse some paranoia and continues to be delusional. Mental Status Exam: General Appearance: Patient appears to be elderly, stated age is alert, disorganized however mildly improving. Fair hygiene and grooming wearing street clothing. Behavior: Patient is calmly seated without any agitated behavior. Required some redirection. Speech: Patient's speech is fluent and nonpressured. Rambles with loose associations, mildly improving. Mood/Affect: Mood is mildly improving, affect is constricted. Suicidality/Homicidality: Denies Perceptions: Some paranoia and delusional thinking. Denies any auditory or visual hallucinations. Though content/process: Patient rambles, loose associations, illogical and disorganized, with some mild improvement. Memory and concentration: Alert and oriented 3. Judgment and insight: Poor, improving mildly. Assessment: Schizoaffective disorder Plan: -Patient continues to meet criteria for inpatient psychiatric admission for symptom stabilization and safety. Patient has signed adult voluntary form and was placed in patient's chart. Patient did not sign for medications at this time. -Medications: We'll continue with Prolixin 2.5 mg twice a day for mood stabilization/psychosis. To give Prolixin IM when necessary in case patient refuses by mouth as per court order. We'll attempt to titrate up as tolerated and transition patient onto long-acting injection. Continue with melatonin 10 mg daily at bedtime for sleep. Increased Depakene 250mg BID for mood stabilization/agitation. -When necessary Zyprexa IM every 6 hours for agitation/aggression. -NRT -not need this patient does not smoke. -SW on board for discharge planning. Encouraged the patient to participate in milieu. Patient received court order for treatment on 12/01/2019.
[2019-12-05] MEDS: ARTIFICIAL TEARS-HYPROMELLOSE DROPS 15 ML BTL BOTH EYES SCH (09:39)
[2019-12-05] MEDS: METOPROLOL TARTRATE 25 MG TAB PO SCH ×3 (09:39→21:41)
[2019-12-05] MEDS: LEVOTHYROXINE 112 MCG TAB PO SCH ×2 (09:39→09:58)
[2019-12-05] MEDS: ASPIRIN 81 MG PO SCH ×2 (09:41→09:58)
[2019-12-05] MEDS: VALPROIC ACID ORAL SOLN 250 MG/5 ML CUP PO SCH ×3 (09:41→21:49)
[2019-12-05] MEDS: flUPHENAZine 2.5 MG/ML (MDV) 10 ML VIAL IM PRN (09:59)
[2019-12-05] MEDS: MULTIVITAMINS, THERA 1 EACH TAB PO SCH (17:35)
[2019-12-05] MEDS: MELATONIN 5 MG TABLET PO SCH (21:41)
[2019-12-06] MEDS: LEVOTHYROXINE 112 MCG TAB PO SCH (06:25)
--- NOTE | 2019-12-06 10:31 | P.PN ---
Progress Note - Text Progress Note Date: 12/06/19 Interval History: Patient was seen lying on her bed this morning after breakfast and was more ag reeable to speak to director underwriter sales in her room only. She was discontinued off her one-to-one sitter yesterday and has not received a IM when necessary yesterday or this morning. Patient refused to take one of her by mouth Prolixin yesterday and received the IM Prolixin. Patient appeared to be more calmer this morning and less bizarre in her behaviors. Patient was also less aggressive with director underwriter sales and handed director underwriter sales a pawn that she made about paper. She continues to have poor insight into her illness and became upset when director underwriter sales asked her about her medications. She continues to be tangential, illogical and have loose associations at times. She claims that she slept better last night and ate her breakfast. At this time patient denies any suicidal or homicidal ideations and denies any auditory or visual hallucinations. Patient is continuing to endorse some paranoia and continues to be delusional. Mental Status Exam: General Appearance: Patient appears to be elderly, stated age is alert, d isorganized however mildly improving, more directable today. Fair hygiene and grooming wearing street clothing. Behavior: Patient is calmly seated without any agitated behavior. Required some redirection. Speech: Patient's speech is fluent and nonpressured. Rambles with loose associations, mildly improving. Mood/Affect: Mood is mildly improving, affect is constricted. Suicidality/Homicidality: Denies Perceptions: Some paranoia and delusional thinking. Denies any auditory or visual hallucinations. Though content/process: Patient rambles, loose associations, illogical and disorganized, with some mild improvement. Memory and concentration: Alert and oriented 3. Judgment and insight: Poor, improving mildly. Assessment: Schizoaffective disorder Plan: -Patient continues to meet criteria for inpatient psychiatric admission for symptom stabilization and safety. Patient has signed adult voluntary form and was placed in patient's chart. Patient did not sign for medications at this time. -Medications: We'll increase Prolixin 4 mg twice a day for mood stabilization/psychosis. To give Prolixin IM when necessary in case patient refuses by mouth as per court order. We'll attempt to titrate up as tolerated and transition patient onto long-acting injection. Continue with melatonin 10 mg daily at bedtime for sleep. Continue with Depakene 250mg BID for mood stabilization/agitation. -When necessary Zyprexa IM every 6 hours for agitation/aggression. -NRT -not need this patient does not smoke. -SW on board for discharge planning. Encouraged the patient to participate in milieu. Patient received court order for treatment on 12/01/2019.
[2019-12-06] MEDS: ASPIRIN 81 MG PO SCH (11:44)
[2019-12-06] MEDS: ARTIFICIAL TEARS-HYPROMELLOSE DROPS 15 ML BTL BOTH EYES SCH (11:44)
[2019-12-06] MEDS: VALPROIC ACID ORAL SOLN 250 MG/5 ML CUP PO SCH ×2 (11:44→22:42)
[2019-12-06] MEDS: METOPROLOL TARTRATE 25 MG TAB PO SCH ×2 (11:45→22:28)
[2019-12-06] MEDS: flUPHENAZine 2.5 MG/ML (MDV) 10 ML VIAL IM PRN (11:48)
[2019-12-06] MEDS: MULTIVITAMINS, THERA 1 EACH TAB PO SCH (17:28)
[2019-12-06] MEDS ORDERED: flUPHENAZine 2.5 MG/ML (MDV) 10 ML VIAL IM PRN (21:00)
[2019-12-06] MEDS: MELATONIN 5 MG TABLET PO SCH (23:14)
[2019-12-07] MEDS: LEVOTHYROXINE 112 MCG TAB PO SCH (05:48)
[2019-12-07] MEDS: ASPIRIN 81 MG PO SCH (08:54)
[2019-12-07] MEDS: ARTIFICIAL TEARS-HYPROMELLOSE DROPS 15 ML BTL BOTH EYES SCH (08:54)
[2019-12-07] MEDS: VALPROIC ACID ORAL SOLN 250 MG/5 ML CUP PO SCH ×2 (09:44→22:15)
[2019-12-07] MEDS: METOPROLOL TARTRATE 25 MG TAB PO SCH ×3 (10:02→23:40)
--- NOTE | 2019-12-07 10:34 | P.PN ---
Progress Note - Text Progress Note Date: 12/07/19 Interval History: Patient was seen lying on her bed this morning after breakfast and appeared to be upset once again literary writer. Patient refused to get out of bed and barely spoke to literary writer. She refused to answer more questions and continues to be delusional and have loose associations. She continues to speak about demons and spirits. She also continues to claim that the medication she is taking is "poisonous" to her and spoke about her giving her the same medications in the past. Lisbet walter did take her Prolixin by mouth yesterday and this morning. She continues to have poor insight into her illness. She claims that she slept "fine" and turned her head and refused to answer anymore questions. She denies any suicidal or homicidal ideations and denies any auditory or visual hallucinations. Patient is continuing to endorse some paranoia and continues to be delusional. Mental Status Exam: General Appearance: Patient appears to be elderly, stated age is alert, disorganized however mildly improving, upset and literary writer today. Fair hygiene and grooming wearing street clothing. Behavior: Patient is calmly seated without any agitated behavior. Upset. Speech: Patient's speech is fluent and nonpressured. Rambles with loose associations, mildly improving. Mood/Affect: Mood is mildly improving, affect is constricted. Suicidality/Homicidality: Denies Perceptions: Some paranoia and delusional thinking. Denies any auditory or visual hallucinations. Though content/process: Patient rambles, loose associations, illogical and disorganized, with some mild improvement. Memory and concentration: Alert and oriented 3. Judgment and insight: Poor, improving mildly. Assessment: Schizoaffective disorder Plan: -Patient continues to meet criteria for inpatient psychiatric admission for symptom stabilization and safety. Patient has signed adult voluntary form and was placed in patient's chart. Patient did not sign for medications at this time. -Medications: Decreased Prolixin 3 mg twice a day for mood stabilization/psychosis as patient was noted to have mild tremor in her lower extremities bilaterally. If this continues then we will need to switch patient onto atypical antipsychotic likely Risperdal. We ll give Prolixin IM when necessary in case patient refuses by mouth as per court order. We'll attempt to titrate up as tolerated and transition patient onto long-acting injection. Continue with melatonin 10 mg daily at bedtime for sleep. Continue with Depakene 250mg BID for mood stabilization/agitation. -When necessary Zyprexa IM every 6 hours for agitation/aggression. -NRT -not need this patient does not smoke. -SW on board for discharge planning. Encouraged the patient to participate in milieu. Patient received court order for treatment on 12/01/2019.
[2019-12-07] MEDS: MULTIVITAMINS, THERA 1 EACH TAB PO SCH (17:42)
[2019-12-07] MEDS: MELATONIN 5 MG TABLET PO SCH (22:15)
[2019-12-07] MEDS: flUPHENAZine 2.5 MG/ML (MDV) 10 ML VIAL IM PRN (22:26)
[2019-12-08] MEDS: LEVOTHYROXINE 112 MCG TAB PO SCH (06:36)
[2019-12-08] MEDS: METOPROLOL TARTRATE 25 MG TAB PO SCH ×2 (06:58→22:08)
--- NOTE | 2019-12-08 09:57 | P.PN ---
Progress Note - Text Progress Note Date: 12/08/19 Interval History: Patient was seen lying on her bed this morning after breakfast and was reluctant to speak with gag writer initially. Patient spoke about wanting to see Dr. Waters and states that "you're not my doctor and wanted talk to you". She states that she took her by mouth medication this morning of Prolixin however according to the MAR patient did not receive her medication this morning. Patient continues to require Prolixin IM and has been refusing the by mouth. She appeared to be calmer with the gag writer however and mild improvement in goal orientation and more logical in her thought process. She continues to speak about demons and spirits. She continues to have poor insight into her illness. She claims that she slept "fine" last night and denied any problems. Patient spoke about filing complaints against gag writer. She denies any suicidal or homicidal ideations and denies any auditory or visual hallucinations. Patient is continuing to endorse some paranoia and continues to be delusional. Mental Status Exam: General Appearance: Patient appears to be elderly, stated age is alert, disorganized however mildly improving, dismissive. Fair hygiene and grooming wearing street clothing. Behavior: Patient is calmly seated without any agitated behavior. Upset. Speech: Patient's speech is fluent and nonpressured. loose associations, mildly improving. Mood/Affect: Mood is mildly improving, affect is constricted. Suicidality/Homicidality: Denies Perceptions: Some paranoia and delusional thinking. Denies any auditory or visual hallucinations. Though content/process: Patient rambles, loose associations, illogical and disorganized, with some mild improvement. Memory and concentration: Alert and oriented 3. Judgment and insight: Poor, improving mildly. Assessment: Schizoaffective disorder Plan: -Patient continues to meet criteria for inpatient psychiatric admission for symptom stabilization and safety. Patient has signed adult voluntary form and was placed in patient's chart. Patient did not sign for medications at this time. -Medications: Continue with Prolixin 3 mg twice a day for mood stabilization/psychosis. Patient was not observed to have any tremors this morning. We ll give Prolixin IM when necessary in case patient refuses by mouth as per court order. We'll attempt to titrate up as tolerated and transition patient onto long-acting injection. Continue with melatonin 10 mg daily at bedtime for sleep. Continue with Depakene 250mg BID for mood stabilization/agitation. -When necessary Zyprexa IM 5 mg every 6 hours for agitation/aggression. -NRT -not need this patient does not smoke. -SW on board for discharge planning. Encouraged the patient to participate in milieu. Patient received court order for treatment on 12/01/2019. We'll start seeking guardianship at this time and will be considering long-term placement as patient cannot care for herself.
[2019-12-08] MEDS: ARTIFICIAL TEARS-HYPROMELLOSE DROPS 15 ML BTL BOTH EYES SCH ×2 (10:17→14:18)
[2019-12-08] MEDS: ASPIRIN 81 MG PO SCH (10:18)
[2019-12-08] MEDS: VALPROIC ACID ORAL SOLN 250 MG/5 ML CUP PO SCH ×2 (10:19→21:56)
[2019-12-08] MEDS: flUPHENAZine 2.5 MG/ML (MDV) 10 ML VIAL IM PRN ×2 (10:24→22:22)
[2019-12-08] MEDS: MULTIVITAMINS, THERA 1 EACH TAB PO SCH (17:53)
[2019-12-08] MEDS: MELATONIN 5 MG TABLET PO SCH (22:08)
[2019-12-09] MEDS: LEVOTHYROXINE 112 MCG TAB PO SCH (06:16)
[2019-12-09] MEDS: ARTIFICIAL TEARS-HYPROMELLOSE DROPS 15 ML BTL BOTH EYES SCH (08:29)
[2019-12-09] MEDS: ASPIRIN 81 MG PO SCH (08:30)
[2019-12-09] MEDS: VALPROIC ACID ORAL SOLN 250 MG/5 ML CUP PO SCH ×2 (08:30→21:39)
[2019-12-09] MEDS: METOPROLOL TARTRATE 25 MG TAB PO SCH ×2 (08:30→21:39)
[2019-12-09] MEDS: flUPHENAZine 2.5 MG/ML (MDV) 10 ML VIAL IM PRN (09:14)
--- NOTE | 2019-12-09 10:15 | P.PN ---
Progress Note - Text Progress Note Date: 12/09/19 Interval History: Patient was seen lying on her bed this morning after breakfast and was reluctant to speak with service writer advisor once again. Patient did appear to be calmer during the encounter however requested to speak with her "real doctor" referring to Dr. Waters. She states that "you're just trying give me [employer] and I dont want to take it" referring to her Prolixin and states that she is going to continue to refuse it. She claims that she should be on vitamin D only and does not believe that she has a mental illness. Patient continues to require Prolixin IM and has been refusing the by mouth. She did show mild improvement in goal orientation and more logical in her thought process and was more logical however continues to endorse delusions and some paranoia. She claims that she slept "ok" last night and denied any problems. Patient spoke about filing complaints against service writer advisor. She denies any suicidal or homicidal ideations and denies any auditory or visual hallucinations. Mental Status Exam: General Appearance: Patient appears to be elderly, stated age is alert, disor ganized however mildly improving, dismissive. Fair hygiene and grooming wearing street clothing. Behavior: Patient is calmly seated without any agitated behavior. Calmer today. Speech: Patient's speech is fluent and nonpressured. loose associations, mildly improving. Mood/Affect: Mood is mildly improving, affect is constricted. Suicidality/Homicidality: Denies Perceptions: Some paranoia and delusional thinking. Denies any auditory or visual hallucinations. Though content/process: Patient rambles, loose associations, illogical and disorganized, with some mild improvement. Memory and concentration: Alert and oriented 3. Judgment and insight: Poor, improving mildly. Assessment: Schizoaffective disorder Plan: -Patient continues to meet criteria for inpatient psychiatric admission for sym ptom stabilization and safety. Patient has signed adult voluntary form and was placed in patient's chart. Patient did not sign for medications at this time. -Medications: Increased Prolixin 3 mg daily +4 mg daily at bedtime for mood stabilization/psychosis. Patient was not observed to have any tremors this morning. We ll give Prolixin IM when necessary in case patient refuses by mouth as per court order. We'll attempt to titrate up as tolerated and transition patient onto long-acting injection. Continue with melatonin 10 mg daily at bedtime for sleep. Continue with Depakene 250mg BID for mood stabilization/agitation. -When necessary Zyprexa IM 5 mg every 6 hours for agitation/aggression. -NRT -not need this patient does not smoke. -SW on board for discharge planning. Encouraged the patient to participate in milieu. Patient received court order for treatment on 12/01/2019. We'll start seeking guardianship at this time and will be considering long-term placement as patient cannot care for herself.
[2019-12-09] MEDS: MULTIVITAMINS, THERA 1 EACH TAB PO SCH (17:30)
[2019-12-09] MEDS ORDERED: flUPHENAZine 2.5 MG/ML (MDV) 10 ML VIAL IM PRN (21:00)
[2019-12-09] MEDS: MELATONIN 5 MG TABLET PO SCH (21:39)
[2019-12-10] MEDS: LEVOTHYROXINE 112 MCG TAB PO SCH (06:29)
[2019-12-10] MEDS: METOPROLOL TARTRATE 25 MG TAB PO SCH ×2 (06:29→22:10)
[2019-12-10] MEDS ORDERED: flUPHENAZine 2.5 MG/ML (MDV) 10 ML VIAL IM PRN (09:00)
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
[2019-12-10] MEDS: ARTIFICIAL TEARS-HYPROMELLOSE DROPS 15 ML BTL BOTH EYES SCH (10:28)
[2019-12-10] MEDS: ASPIRIN 81 MG PO SCH (10:28)
[2019-12-10] MEDS: VALPROIC ACID ORAL SOLN 250 MG/5 ML CUP PO SCH ×2 (10:29→22:10)
[2019-12-10] MEDS: MULTIVITAMINS, THERA 1 EACH TAB PO SCH (17:01)
[2019-12-10] MEDS: MELATONIN 5 MG TABLET PO SCH (22:00)
[2019-12-11] MEDS: LEVOTHYROXINE 112 MCG TAB PO SCH (07:28)
[2019-12-11] MEDS: ARTIFICIAL TEARS-HYPROMELLOSE DROPS 15 ML BTL BOTH EYES SCH ×2 (09:29→22:44)
[2019-12-11] MEDS: ASPIRIN 81 MG PO SCH (09:30)
[2019-12-11] MEDS: METOPROLOL TARTRATE 25 MG TAB PO SCH ×2 (09:30→22:26)
[2019-12-11] MEDS: VALPROIC ACID ORAL SOLN 250 MG/5 ML CUP PO SCH ×2 (09:30→22:25)
[2019-12-11] MEDS ORDERED: BENZTROPINE 2 MG/2 ML AMP IM ONE (15:15)
[2019-12-11] MEDS: MULTIVITAMINS, THERA 1 EACH TAB PO SCH (18:25)
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
[2019-12-11] MEDS: MELATONIN 5 MG TABLET PO SCH (22:26)
[2019-12-12] MEDS: LEVOTHYROXINE 112 MCG TAB PO SCH (06:15)
[2019-12-12] MEDS: METOPROLOL TARTRATE 25 MG TAB PO SCH ×2 (10:18→21:38)
[2019-12-12] MEDS: ARTIFICIAL TEARS-HYPROMELLOSE DROPS 15 ML BTL BOTH EYES SCH (10:19)
[2019-12-12] MEDS: VALPROIC ACID ORAL SOLN 250 MG/5 ML CUP PO SCH ×2 (10:19→21:39)
[2019-12-12] MEDS: ASPIRIN 81 MG PO SCH (10:19)
[2019-12-12] MEDS: BENZTROPINE MESYLATE 1 MG TAB PO SCH ×2 (13:50→21:37)
--- NOTE | 2019-12-12 16:15 | PN ---
PROGRESS NOTE DATE OF SERVICE: 12/12/2019. CHIEF COMPLAINT: The patient had disorganized and bizarre thoughts. She had disordered behavior. She was confused, poor self-care. INTERVAL HISTORY: Patient has been doing fair. She seems to be showing a little progress today. She had a quiet evening last night. She did not attend groups yesterday. She will come out and wander the unit. She would make odd comments often. She had the appearance of an elevated mood. She slept fairly well last night. Today she has been up. She spends some of the time in her room. She will come out in the day area. It is noteworthy that she is more appropriate in her interactions. She is clearer in her thoughts and has been able to direct her thoughts to specific issues or concerns without veering off. It is noteworthy she attended one group today with observations including "bazaar suspicious fragmented illogical, intrusive, restless." In her interactions with staff today she is much more coherent and goal directed in her thinking. When I talked to her, 1 of her concerns was about the court hearing regarding guardianship on Friday. She was very concerned about that. She expressed appropriate thoughts about it. It is noteworthy that when we talked about it, I encouraged her to have contact with her daughter in [place] to see if the daughter could get more information through our forensic social worker as part of a way of supporting whatever the process is for the patient. She was able to talk about these issues in a direct way without any perseveration. She had a fairly pleasant manner in her interactions. She tolerates the increase in her psychotropic medication and in fact took her medications orally without any resistance at all. MENTAL STATUS EXAM: Patient gave fairly good eye contact. She was somewhat restless. She answered questions directly. Her thoughts were clear. Her affect was a little constricted though not significantly so. She had a reserved concerned manner though she did not appear down or depressed. She did not appear significantly distressed. There was no indication of thought disorder. Her thoughts were well organized and on track with the conversation. She voiced no thoughts of harm to self or others. Cognition was clear. ASSESSMENT: I will continue the current diagnosis and treatment plan. Patient seems to be showing some progress with the increase in her Prolixin. She also feels that the Cogentin has helped as well. I strongly encouraged the patient to be in touch with her daughter to have her daughter talk to the forensic social worker tomorrow to get some further guidance in regard to the issue related to her guardianship hearing on Friday. We will focus on stabilization and discharge planning. MANUELAL / IJN: [id number] /
[2019-12-12] MEDS: MULTIVITAMINS, THERA 1 EACH TAB PO SCH (16:53)
[2019-12-12] MEDS: MELATONIN 5 MG TABLET PO SCH (21:37)
[2019-12-13] MEDS: LEVOTHYROXINE 112 MCG TAB PO SCH (06:39)
[2019-12-13] MEDS: METOPROLOL TARTRATE 25 MG TAB PO SCH ×2 (10:06→21:02)
[2019-12-13] MEDS: BENZTROPINE MESYLATE 1 MG TAB PO SCH ×2 (10:06→21:02)
[2019-12-13] MEDS: ARTIFICIAL TEARS-HYPROMELLOSE DROPS 15 ML BTL BOTH EYES SCH (10:06)
[2019-12-13] MEDS: ASPIRIN 81 MG PO SCH (10:07)
[2019-12-13] MEDS: VALPROIC ACID ORAL SOLN 250 MG/5 ML CUP PO SCH ×2 (10:08→21:02)
[2019-12-13] MEDS ORDERED: flUPHENAZine 2.5 MG/ML (MDV) 10 ML VIAL IM PRN (10:24)
--- NOTE | 2019-12-13 10:30 | P.PN ---
Progress Note - Text Progress Note Date: 12/13/19 Interval History: Patient was seen laying down in her bed this morning and was agreeable to speak in her room today. Patient initially appeared to be calmer and more directable with personal lines underwriter and also was more logical and appropriate during conversation. She continues to have very poor insight into her condition and also her treatment. Patient claims that she is not taking the Prolixin by mouth medications as prescribed which was increased to 6 mg twice a day and states that her tremor has resolved as she was put on Cogentin. She continues to request to speak to her other doctor. She also spoke about another patient being upset at her and throwing water into her room over the weekend. She continues to state that she does not need psychiatric medications. When personal lines underwriter began speaking the patient about placement patient became defensive and hostile with personal lines underwriter and immediately started up in a threatening position towards personal lines underwriter as if she was going to attack him. She stated that she wants to continue to live on her own and states that "you don't know anything about me and what I can do". Delusions and paranoia have been improving mildly. She claims that she slept "fine" last night and denied any problems. She denies any suicidal or homicidal ideations and denies any auditory or visual hallucinations. Mental Status Exam: General Appearance: Patient appears to be elderly, stated age is alert, initially directable however became hostile. Fair hygiene and grooming wearing street clothing. Behavior: Patient is calmly seated without any agitated behavior. Calmer today initially however continues to be hostile towards personal lines underwriter. Speech: Patient's speech is fluent and nonpressured. mildly improving. Mood/Affect: Mood is mildly improving, affect is constricted. Suicidality/Homicidality: Denies Perceptions: Some paranoia and delusional thinking. Denies any auditory or vi sual hallucinations. Though content/process: Patient rambles, loose associations, more logical today and was tangential/circumstantial, mildly improving. Memory and concentration: Alert and oriented 3. Judgment and insight: Poor, improving mildly. Assessment: Schizoaffective disorder Plan: -Patient continues to meet criteria for inpatient psychiatric admission for symptom stabilization and safety. Patient has signed adult voluntary form and was placed in patient's chart. Patient did not sign for medications at this time. -Medications: Continue with Prolixin 6 mg twice a day for mood stabi lization/psychosis. Continue with Cogentin 1 mg twice a day for EPS prophylaxis. We ll give Prolixin IM when necessary in case patient refuses by mouth as per court order. We'll attempt to titrate up as tolerated and transition patient onto long-acting injection. Continue with melatonin 10 mg daily at bedtime for sleep. Continue with Depakene 250mg BID for mood stabilization/agitation. -When necessary Zyprexa IM 5 mg every 6 hours for agitation/aggression. -NRT -not need this patient does not smoke. -SW on board for discharge planning. Encouraged the patient to participate in milieu. Patient received court order for treatment on 12/01/2019. Continue with seeking guardianship at this time and will be considering long-term placement as patient cannot care for herself.
[2019-12-13] MEDS: MULTIVITAMINS, THERA 1 EACH TAB PO SCH (17:30)
[2019-12-13] MEDS: MELATONIN 5 MG TABLET PO SCH (21:02)
[2019-12-14] MEDS: LEVOTHYROXINE 112 MCG TAB PO SCH (06:25)
[2019-12-14] MEDS: ARTIFICIAL TEARS-HYPROMELLOSE DROPS 15 ML BTL BOTH EYES SCH (08:42)
[2019-12-14] MEDS: BENZTROPINE MESYLATE 1 MG TAB PO SCH ×2 (08:43→21:15)
[2019-12-14] MEDS: METOPROLOL TARTRATE 25 MG TAB PO SCH ×2 (08:43→21:15)
[2019-12-14] MEDS: VALPROIC ACID ORAL SOLN 250 MG/5 ML CUP PO SCH ×2 (08:43→21:16)
[2019-12-14] MEDS: ASPIRIN 81 MG PO SCH (08:44)
--- NOTE | 2019-12-14 11:39 | P.PN ---
Progress Note - Text Progress Note Date: 12/14/19 Interval History: Patient was seen laying down in her bed this morning and was agreeable to speak in her room today. Patient was noted to be more calmer and appropriate with policy writer during conversation. Patient was also less hostile and less argumentative today. She continues to have minimal insight into her condition however did state that she finished the hearing for guardianship with the direct chill caster and states that her daughter in [place] will be her new guardian. She spoke about her condo and missing condo payments and that her daughter will be helping to take care of that for her and we'll gain access to her accounts. She claims that she is feeling better today overall and was more logical and goal oriented during conversation and less tangential. She states that she slept well last night and has been going to some groups. She has been noted to be taking by mouth Depakene and by mouth Prolixin for the past several days consistently. Delusions and paranoia have been improving. She denies any suicidal or homicidal ideations and denies any auditory or visual hallucinations. Mental Status Exam: General Appearance: Patient appears to be elderly, stated age is alert, more directable today and less hostile. Fair hygiene and grooming wearing street clothing. Behavior: Patient is calmly seated without any agitated behavior. Calmer today and more appropriate. Speech: Patient's speech is fluent and nonpressured. mildly improving. Mood/Affect: Mood is mildly improving, affect is constricted. Suicidality/Homicidality: Denies Perceptions: Some paranoia and delusional thinking, improving. Denies any auditory or visual hallucinations. Though content/process: Patient rambles, more logical today and was tangential/circumstantial, mildly improving. Memory and concentration: Alert and oriented 3. Judgment and insight: Poor, improving mildly. Assessment: Schizoaffective disorder Plan: -Patient continues to meet criteria for inpatient psychiatric admission for symptom stabilization and safety. Patient has signed adult voluntary form and was placed in patient's chart. Patient did not sign for medications at this time. -Medications: Continue with Prolixin 6 mg twice a day for mood stabilization/psychosis. Continue with Cogentin 1 mg twice a day for EPS prophylaxis. We ll give Prolixin IM when necessary in case patient refuses by mouth as per court order. We'll attempt to titrate up as tolerated and transition patient onto long-acting injection. Continue with melatonin 10 mg daily at bedtime for sleep. Continue with Depakene 250mg BID for mood stabilization/agitation. -When necessary Zyprexa IM 5 mg every 6 hours for agitation/aggression. -NRT -not need this patient does not smoke. -SW on board for discharge planning. Encouraged the patient to participate in milieu. Patient received court order for treatment on 12/01/2019. Patient received guardian on 12/14/2019 which will be her daughter in [place]. dairy farmworker will work with patient's daughter/guardian to help with patient's placement.
[2019-12-14] MEDS: MULTIVITAMINS, THERA 1 EACH TAB PO SCH (15:52)
[2019-12-14] MEDS: MELATONIN 5 MG TABLET PO SCH (21:15)
[2019-12-15] MEDS: LEVOTHYROXINE 112 MCG TAB PO SCH (06:00)
[2019-12-15] MEDS: VALPROIC ACID ORAL SOLN 250 MG/5 ML CUP PO SCH ×2 (09:15→20:57)
[2019-12-15] MEDS: BENZTROPINE MESYLATE 1 MG TAB PO SCH ×2 (09:15→20:53)
[2019-12-15] MEDS: ARTIFICIAL TEARS-HYPROMELLOSE DROPS 15 ML BTL BOTH EYES SCH (09:15)
[2019-12-15] MEDS: METOPROLOL TARTRATE 25 MG TAB PO SCH ×2 (09:15→20:56)
[2019-12-15] MEDS: ASPIRIN 81 MG PO SCH (09:15)
--- NOTE | 2019-12-15 12:45 | P.PN ---
Progress Note - Text Progress Note Date: 12/15/19 Interval History: Patient was seen sitting at the side of her bed doing a crossword and was dire ctable and agreeable to stricter in the office.. Patient was noted to be more calmer and appropriate with display card writer during conversation and more open today. She went on to speak more about her and also about her experiences at [facility] and praying and believes that other people including staff are not letting her pray or thinking that she is bizarre because she is praying to herself in her ro om. She spoke about the "stress of yesterday" referring to the guardianship hearing and how she has 2 guardians at this time. She claims that her mood has been getting better and she feels better now and claims that she was able to sleep throughout the night. She claims that she is feeling better today overall and was more logical and goal oriented during conversation and less tangential. Delusions and paranoia have been improving. She denies any suicidal or homicidal ideations and denies any auditory or visual hallucinations. Mental Status Exam: General Appearance: Patient appears to be elderly, stated age is alert, more directable today. Fair hygiene and grooming wearing street clothing. Behavior: Patient is calmly seated without any agitated behavior. Calmer today and more appropriate. Speech: Patient's speech is fluent and nonpressured. mildly improving. Mood/Affect: Mood is mildly improving, affect is constricted. Suicidality/Homicidality: Denies Perceptions: Some paranoia and delusional thinking, improving. Denies any auditory or visual hallucinations. Though content/process: Patient rambles, more logical today and was tangential/circumstantial, mildly improving. Memory and concentration: Alert and oriented 3. Judgment and insight: Chronically Poor, improving mildly. Assessment: Schizoaffective disorder Plan: -Patient continues to meet criteria for inpatient psychiatric admission for symptom stabilization and safety. Patient has signed adult voluntary form and was placed in patient's chart. Patient did not sign for medications at this time. -Medications: Continue with Prolixin 6 mg twice a day for mood stabilization/psychosis. Continue with Cogentin 1 mg twice a day for EPS prophylaxis. We ll give Prolixin IM when necessary in case patient refuses by mouth as per court order. We'll transition patient onto long-acting injection. Continue with melatonin 10 mg daily at bedtime for sleep. Continue with Depakene 250mg BID for mood stabilization/agitation. -When necessary Zyprexa IM 5 mg every 6 hours for agitation/aggression. -NRT -not need this patient does not smoke. -SW on board for discharge planning. Encouraged the patient to participate in milieu. Patient received court order for treatment on 12/01/2019. Patient received guardian on 12/14/2019 which will be her daughter in [place]. television maintenance worker will work with patient's daughter/guardian to help with patient's placement and if she feels comfortable, patient may also go back to her condominium if she receives home support.
[2019-12-15] MEDS: MULTIVITAMINS, THERA 1 EACH TAB PO SCH (17:12)
[2019-12-15] MEDS: MELATONIN 5 MG TABLET PO SCH (20:57)
[2019-12-16] MEDS: LEVOTHYROXINE 112 MCG TAB PO SCH (06:21)
[2019-12-16] MEDS: BENZTROPINE MESYLATE 1 MG TAB PO SCH ×2 (08:28→20:53)
[2019-12-16] MEDS: ARTIFICIAL TEARS-HYPROMELLOSE DROPS 15 ML BTL BOTH EYES SCH (08:28)
[2019-12-16] MEDS: METOPROLOL TARTRATE 25 MG TAB PO SCH ×2 (08:28→20:53)
[2019-12-16] MEDS: VALPROIC ACID ORAL SOLN 250 MG/5 ML CUP PO SCH (08:29)
[2019-12-16] MEDS: ASPIRIN 81 MG PO SCH (08:29)
--- NOTE | 2019-12-16 10:26 | P.PN ---
Progress Note - Text Progress Note Date: 12/16/19 Interval History: Patient was seen attending and listening in on group this morning and was dire ctable and agreeable to speak to feature writer in the office.. Patient was noted to be more calmer and appropriate with feature writer during conversation this morning. She was less hostile and more goal oriented however at times was tangential in her conversation. She continues to speak about her medications however is much more reasonable and open to taking them. She asked if she could be switched to Depak ote by mouth tablets instead claiming that she wanted to take them at nighttime and not wanting to take the syrup any longer. She also asked about being restarted on her vitamin D today. She was somewhat loose in her associations however was not bizarre and had some racing thoughts. She did claim that she is sleeping better at nighttime and trying to go to groups whenever she can. She also claims that she has fair appetite. Delusions and paranoia have been improving. She denies any suicidal or homicidal ideations and denies any auditory or visual hallucinations. Mental Status Exam: General Appearance: Patient appears to be elderly, stated age is alert, more directable today. Fair hygiene and grooming wearing street clothing. Behavior: Patient is calmly seated without any agitated behavior. Calmer today and more polite. Speech: Patient's speech is fluent and nonpressured. mildly improving. Mood/Affect: Mood is mildly improving, affect is constricted. Suicidality/Homicidality: Denies Perceptions: Some paranoia and delusional thinking, improving. Denies any auditory or visual hallucinations. Though content/process: Patient rambles, more logical today and was tangential/circumstantial however is mildly improving. Memory and concentration: Alert and oriented 3. Judgment and insight: Chronically Poor, improving mildly. Assessment: Schizoaffective disorder Plan: -Patient continues to meet criteria for inpatient psychiatric admission for symptom stabilization and safety. Patient has signed adult voluntary form and was placed in patient's chart. Patient did not sign for medications at this time. -Medications: Continue with Prolixin 6 mg twice a day for mood stabilization/psychosis. Continue with Cogentin 1 mg twice a day for EPS prophylaxis. We ll give Prolixin IM when necessary in case patient refuses by mouth as per court order. We'll transition patient onto long-acting injection. Continue with melatonin 10 mg daily at bedtime for sleep. Switched Depakote to by mouth 500 mg daily at bedtime for mood stabilization. -When necessary Zyprexa IM 5 mg every 6 hours for agitation/aggression. -NRT -not need this patient does not smoke. -SW on board for discharge planning. Encouraged the patient to participate in milieu. Patient received court order for treatment on 12/01/2019. Patient received guardian on 12/14/2019 which will be her daughter in [place]. barnworker groom will work with patient's daughter/guardian to help with patient's placement and if she feels comfortable, patient may also go back to her condominium if she receives home support. Likely discharge early next week.
[2019-12-16] MEDS: MULTIVITAMINS, THERA 1 EACH TAB PO SCH (10:34)
[2019-12-16] MEDS: CHOLECALCIFEROL 1,000 UNIT TAB PO SCH (10:34)
[2019-12-16] MEDS: DIVALPROEX ER 500 MG TAB.ER.24H PO SCH (20:53)
[2019-12-16] MEDS: MELATONIN 5 MG TABLET PO SCH (20:53)
[2019-12-17] MEDS: LEVOTHYROXINE 112 MCG TAB PO SCH (06:58)
[2019-12-17] MEDS: ARTIFICIAL TEARS-HYPROMELLOSE DROPS 15 ML BTL BOTH EYES SCH (08:45)
[2019-12-17] MEDS: METOPROLOL TARTRATE 25 MG TAB PO SCH ×2 (08:46→20:46)
[2019-12-17] MEDS: BENZTROPINE MESYLATE 1 MG TAB PO SCH ×2 (08:46→20:45)
[2019-12-17] MEDS: ASPIRIN 81 MG PO SCH (08:46)
[2019-12-17] MEDS: CHOLECALCIFEROL 1,000 UNIT TAB PO SCH (08:46)
--- NOTE | 2019-12-17 10:13 | P.PN ---
Progress Note - Text Progress Note Date: 12/17/19 Interval History: Patient was seen attending groups this morning and was directable and agreeable to speak to brief writer in the office. Patient came with a piece of paper with a written palm on it and claims that she was working on this yesterday and wanted to share with brief writer. She read off her home about "[place] virus" and spoke about the viruses origin and how it's affecting us. Patient was noted to be more calmer and appropriate with brief writer during conversation this morning. She continues to have tangential/circumstantial thought process however this is improving. Patient also rambles that time however this is also improving. Patient states that she is taking her medications and was speaking more about the value of her medications and her insight has been gradually improving. She states that she was able to sleep approximately 5-6 hours last night after taking her Depakote. She states that she is trying to go to groups whenever she can. She also claims that she has fair appetite. She denies any suicidal or homicidal ideations and denies any auditory or visual hallucinations. Mental Status Exam: General Appearance: Patient appears to be elderly, stated age is alert, more directable today. Fair hygiene and grooming wearing street clothing. Behavior: Patient is calmly seated without any agitated behavior. Calmer today and more polite. Speech: Patient's speech is fluent and nonpressured. mildly improving. Mood/Affect: Mood is mildly improving, affect is constricted. Suicidality/Homicidality: Denies Perceptions: Denies any auditory or visual hallucinations. Though content/process: Patient rambles, more logical today and was tangential/circumstantial however is mildly improving. Memory and concentration: Alert and oriented 3. Judgment and insight: Chronically Poor, improving mildly. Assessment: Schizoaffective disorder Plan: -Patient continues to meet criteria for inpatient psychiatric admission for symptom stabilization and safety. Patient has signed adult voluntary form and was placed in patient's chart. Patient did not sign for medications at this time. -Medications: Continue with Prolixin 6 mg twice a day for mood stabilization/psychosis. Continue with Cogentin 1 mg twice a day for EPS prophylaxis. We ll give Prolixin IM when necessary in case patient refuses by mouth as per court order. We'll transition patient onto long-acting injection. Continue with melatonin 10 mg daily at bedtime for sleep. Continue with Depakote to by mouth 500 mg daily at bedtime for mood stabilization. -When necessary Zyprexa IM 5 mg every 6 hours for agitation/aggression. -NRT -not need this patient does not smoke. -SW on board for discharge planning. Encouraged the patient to participate in milieu. Patient received court order for treatment on 12/01/2019. Patient received guardian on 12/14/2019 which will be her daughter in [place]. farmworker dairy will work with patient's daughter/guardian to help with patient's placement and if she feels comfortable, patient may also go back to her condominium if she receives home support. Likely discharge early next week after patient receives her Prolixin Decanoate long-acting injection.
[2019-12-17] MEDS: MULTIVITAMINS, THERA 1 EACH TAB PO SCH (17:30)
[2019-12-17] MEDS: DIVALPROEX ER 500 MG TAB.ER.24H PO SCH (20:45)
[2019-12-17] MEDS: MELATONIN 5 MG TABLET PO SCH (20:45)
[2019-12-18] MEDS: LEVOTHYROXINE 112 MCG TAB PO SCH (06:37)
[2019-12-18] MEDS: ARTIFICIAL TEARS-HYPROMELLOSE DROPS 15 ML BTL BOTH EYES SCH (08:55)
[2019-12-18] MEDS: CHOLECALCIFEROL 1,000 UNIT TAB PO SCH (08:58)
[2019-12-18] MEDS: BENZTROPINE MESYLATE 1 MG TAB PO SCH ×2 (08:58→21:36)
[2019-12-18] MEDS: ASPIRIN 81 MG PO SCH (08:59)
[2019-12-18] MEDS: METOPROLOL TARTRATE 25 MG TAB PO SCH ×2 (08:59→21:37)
--- NOTE | 2019-12-18 09:15 | P.PN ---
Progress Note - Text Interval history: The patient is found in the hallway she follows me to an interview room. The patient is admitted to the mental health unit with schizoaffective disorder. I do recall meeting her weeks ago during my last call weekend. At that time she was acutely psychotic her thoughts were very disorganized and she was refusing medication. At this time she is pleasant cooperative easily directable. Her thoughts are much more organized. She is endorsing no auditory or visual hallucinations. It appears that she is chronically stabilizing and she is planning to be discharged sometime early next week. She reported he slept 7 hours appetite is stable. No behavioral disturbance is reported by staff. She has been compliant with her medication the primary antipsychotic appears to be Prolixin. Mental status exam: The patient is alert she stressor own clothing wearing pajamas. Eye contact is appropriate speech is fluent spontaneous she is verbose but nonpressured. She requires little redirection. She is endorsing no suicidal or homicidal ideation intent or plan. She is endorsing no auditory or visual hallucinations. She endorses no specific delusions but she does sort of spontaneously convey some paranoid thoughts. Her function overall is much improved however. She is oriented to person place and date. She demonstrates no verbal or physical aggressiveness she demonstrates no involuntary repetitively movements. Plan: The patient will continue on her current psychotropic medications. Vital signs reviewed. He is in no physical distress using relating appropriately. She is encouraged to continue participating in groups. It appears that she is chronically stabilizing and will be appropriate for discharge as planned early next week.
[2019-12-18] MEDS: MULTIVITAMINS, THERA 1 EACH TAB PO SCH (17:30)
[2019-12-18] MEDS: MELATONIN 5 MG TABLET PO SCH (21:37)
[2019-12-18] MEDS: DIVALPROEX ER 500 MG TAB.ER.24H PO SCH (21:37)
[2019-12-19] MEDS: LEVOTHYROXINE 112 MCG TAB PO SCH (06:33)
[2019-12-19] MEDS: ARTIFICIAL TEARS-HYPROMELLOSE DROPS 15 ML BTL BOTH EYES SCH (09:26)
[2019-12-19] MEDS: CHOLECALCIFEROL 1,000 UNIT TAB PO SCH (09:28)
[2019-12-19] MEDS: BENZTROPINE MESYLATE 1 MG TAB PO SCH ×2 (09:28→21:26)
[2019-12-19] MEDS: ASPIRIN 81 MG PO SCH (09:28)
[2019-12-19] MEDS: METOPROLOL TARTRATE 25 MG TAB PO SCH ×2 (09:29→21:26)
--- NOTE | 2019-12-19 10:48 | P.PN ---
Progress Note - Text Interval history: The patient is found in the hallway she follows me to an interview room. She states that her mood is good. She is looking forward to being discharged. She does not appear to have attended any groups today. She is eating she reports sleeping well last night staff reports she slept 7 hours. She has been compliant with medication. She states that she feels that the Prolixin is not necessary but she has been compliant. I shared with her that she does appear much more clinically stabilized compared to our last meeting several weeks ago. No reports of any behavioral disturbance. She has been redirectable. Mental status exam: The patient is alert she is dressed in her pajamas as yesterday. She is pleasant cooperative. She follows me to an interview room. She reports her mood is good affect is appropriately expressive. Speech is fluent spontaneous nonpressured. She is reporting no auditory or visual hallucinations. She is reporting no specific delusions she does however state that she did not require this admission and lacks insight into the need for her treatment. Fortunately she's been compliant with medication and direction here however. She demonstrates no verbal or physical aggressiveness she demonstrates no involuntary repetitive movements. She describes some feeling of needing to m ove her feet however. No tremor is noted. Plan: The patient will continue on her current psychotropic medications she has significantly stabilized from when I saw her several weeks ago. It appears that she is stabilizing and will be appropriate for discharge sometime this coming week. We will monitor her for safety. Vital signs reviewed. She is encouraged to participate in the milieu.
[2019-12-19] MEDS: MULTIVITAMINS, THERA 1 EACH TAB PO SCH (17:28)
[2019-12-19] MEDS: DIVALPROEX ER 500 MG TAB.ER.24H PO SCH (21:26)
[2019-12-19] MEDS: MELATONIN 5 MG TABLET PO SCH (21:27)
[2019-12-20] MEDS: LEVOTHYROXINE 112 MCG TAB PO SCH (06:52)
[2019-12-20 08:32] VITALS: BMI 27.5
[2019-12-20] MEDS: CHOLECALCIFEROL 1,000 UNIT TAB PO SCH (08:54)
[2019-12-20] MEDS: BENZTROPINE MESYLATE 1 MG TAB PO SCH ×2 (08:54→20:36)
[2019-12-20] MEDS: METOPROLOL TARTRATE 25 MG TAB PO SCH ×2 (08:54→20:36)
[2019-12-20] MEDS: ARTIFICIAL TEARS-HYPROMELLOSE DROPS 15 ML BTL BOTH EYES SCH (08:55)
[2019-12-20] MEDS: ASPIRIN 81 MG PO SCH (08:55)
--- NOTE | 2019-12-20 10:02 | P.PN ---
Progress Note - Text Progress Note Date: 12/20/19 Interval History: Patient was seen attending groups this morning and was directable and agreeable to speak to lyric writer in the office. Patient appeared to be calmer with lyric writer and appeared to be more positive and cooperative during conversation. She spoke in a softer and polite tone today. She states that she is doing "just wonderful" and appeared to be less tangential and more goal oriented and organized in her thought process. She spoke about most people on the unit having "seasonal affe ctive disorder" and states that today's us miguel day and she feels that people will be happier. She continues to have poor insight into her condition however this has been improving and patient is more agreeable to be taking her medications. Pcb Design Engineer explained to her about being transitioned onto Prolixin-D today and will be gradually titrated off her Prolixin by mouth. Patient was agreeable to this. She was more future oriented and speaking about her discharge and the different hobbies that she has. She states that she was able to sleep approximately 5-6 hours last night and has been going to groups. She also claims that she has fair appetite. She denies any suicidal or homicidal ideations and denies any auditory or visual hallucinations. Mental Status Exam: General Appearance: Patient appears to be elderly, stated age is alert, more directable today. Fair hygiene and grooming wearing street clothing. Behavior: Patient is calmly seated without any agitated behavior. Calmer today and polite. Speech: Patient's speech is fluent and nonpressured. mildly improving. Mood/Affect: Mood is mildly improving, affect is constricted. Suicidality/Homicidality: Denies Perceptions: Denies any auditory or visual hallucinations. Though content/process: Patient is more logical today and was tangential/circumstantial however is mildly improving. Memory and concentration: Alert and oriented 3. Judgment and insight: Chronically Poor, improving mildly. Assessment: Schizoaffective disorder Plan: -Patient continues to meet criteria for inpatient psychiatric admission for symptom stabilization and safety. Patient has signed adult voluntary form and was placed in patient's chart. Patient did not sign for medications at this time. -Medications: We'll begin decreasing PO Prolixin 4.5 mg twice a day for mood stabilization/psychosis. Continue with Cogentin 1 mg twice a day for EPS prophylaxis. We ll give Prolixin IM when necessary in case patient refuses by mouth as per court order. Patient to receive Prolixin D 25 mg IM today. Continue with melatonin 10 mg daily at bedtime for sleep. Continue with Depakote to by mouth 500 mg daily at bedtime for mood stabilization. -When necessary Zyprexa IM 5 mg every 6 hours for agitation/aggression. -NRT -not need this patient does not smoke. -SW on board for discharge planning. Encouraged the patient to participate in milieu. Patient received court order for treatment on 12/01/2019. Patient received guardian on 12/14/2019 which will be her daughter in [place]. high worker will work with patient's daughter/guardian to help with patient's disposition and care after discharge. Likely discharge in 1-2 days and will be following up with [facility].
[2019-12-20] MEDS ORDERED: fluPHENAZine DECANOATE 25 MG/ML 5ML MDV IM ONE (16:00)
[2019-12-20] MEDS: MULTIVITAMINS, THERA 1 EACH TAB PO SCH (16:54)
[2019-12-20] MEDS: DIVALPROEX ER 500 MG TAB.ER.24H PO SCH (20:36)
[2019-12-20] MEDS: MELATONIN 5 MG TABLET PO SCH (20:36)
[2019-12-21] MEDS: LEVOTHYROXINE 112 MCG TAB PO SCH (06:51)
[2019-12-21] MEDS: BENZTROPINE MESYLATE 1 MG TAB PO SCH ×2 (08:51→21:10)
[2019-12-21] MEDS: ARTIFICIAL TEARS-HYPROMELLOSE DROPS 15 ML BTL BOTH EYES SCH (08:51)
[2019-12-21] MEDS: CHOLECALCIFEROL 1,000 UNIT TAB PO SCH (08:51)
[2019-12-21] MEDS: ASPIRIN 81 MG PO SCH (08:51)
[2019-12-21] MEDS: METOPROLOL TARTRATE 25 MG TAB PO SCH ×2 (08:52→21:10)
[2019-12-21] MEDS ORDERED: flUPHENAZine 2.5 MG/ML (MDV) 10 ML VIAL IM PRN (11:11)
--- NOTE | 2019-12-21 11:19 | P.PN ---
Progress Note - Text Progress Note Date: 12/21/19 Interval History: Patient was seen sitting at the side of her bed in her room and was directable and agreeable to speak to bid writer in the office. Patient appeared to be calmer this morning and spoke in a soft tone of voice. She states that she is doing much better today in terms of her mood and was polite with bid writer. Her thoughts are more goal oriented and organized in her thought process and spoke about wanting to be discharged. She claims that she thought that today was going to be her day to be discharged however states that she is trying to be patient. Telephone Services Sales Representative spoke with her about the guardianship hearing and also the paperwork that is involved which needs to be in place prior to her discharge. Patient states that she took the Prolixin D long-acting injection dose yesterday and states that she tolerated it well however claims that she had poor sleep afterwards. Telephone Services Sales Representative explained that he will be continuing to titrate down her by mouth Prolixin and patient was okay with this. Patient states that she has been going to groups. She also claims that she has fair appetite. She denies any suicidal or homicidal ideations and denies any auditory or visual hallucinations. Mental Status Exam: General Appearance: Patient appears to be elderly, stated age is alert, more directable today. Fair hygiene and grooming wearing street clothing. Behavior: Patient is calmly seated without any agitated behavior. Calm and polite. Speech: Patient's speech is fluent and nonpressured. mildly improving. Mood/Affect: Mood is mildly improving, affect is constricted. Suicidality/Homicidality: Denies Perceptions: Denies any auditory or visual hallucinations. Though content/process: Patient is more logical today and more goal oriented. Does not endorse any delusions or paranoia. Memory and concentration: Alert and oriented 3. Judgment and insight: improving mildly. Assessment: Schizoaffective disorder Plan: -Patient continues to meet criteria for inpatient psychiatric admission for symptom stabilization and safety. Patient has signed adult voluntary form and was placed in patient's chart. Patient did not sign for medications at this time. -Medications: We'll continue decreasing PO Prolixin 3.5 mg twice a day for mood stabilization/psychosis. Continue with Cogentin 1 mg twice a day for EPS prophylaxis. We ll give Prolixin IM when necessary in case patient refuses by mouth as per court order. Patient to receive Prolixin D 25 mg IM on 12/20/2019. Continue with melatonin 10 mg daily at bedtime for sleep. Continue with Depakote to by mouth 500 mg daily at bedtime for mood stabilization. -When necessary Zyprexa IM 5 mg every 6 hours for agitation/aggression. -NRT -not need this patient does not smoke. - on board for discharge planning. Encouraged the patient to participate in milieu. Patient received court order for treatment on 12/01/2019. Patient received guardian on 12/14/2019 which will be her daughter in [place]. marshmallow machine worker will work with patient's daughter/guardian to help with patient's disposition and care after discharge, currently awaiting guardianship paperwork to be finalized in guardians to gain control of accounts. Likely discharge in 1-2 days and will be following up with [facility].
[2019-12-21] MEDS: DIVALPROEX ER 500 MG TAB.ER.24H PO SCH (21:10)
[2019-12-21] MEDS: MULTIVITAMINS, THERA 1 EACH TAB PO SCH (21:10)
[2019-12-21] MEDS: MELATONIN 5 MG TABLET PO SCH (21:10)
[2019-12-22] MEDS: LEVOTHYROXINE 112 MCG TAB PO SCH (06:57)
[2019-12-22] MEDS: METOPROLOL TARTRATE 25 MG TAB PO SCH ×2 (08:44→22:07)
[2019-12-22] MEDS: BENZTROPINE MESYLATE 1 MG TAB PO SCH ×2 (08:44→22:07)
[2019-12-22] MEDS: CHOLECALCIFEROL 1,000 UNIT TAB PO SCH (08:44)
[2019-12-22] MEDS: ASPIRIN 81 MG PO SCH (08:44)
[2019-12-22] MEDS: ARTIFICIAL TEARS-HYPROMELLOSE DROPS 15 ML BTL BOTH EYES SCH (09:44)
--- NOTE | 2019-12-22 11:28 | P.PN ---
Progress Note - Text Progress Note Date: 12/22/19 Interval History: Patient was seen sitting at the side of her bed in her room and was directable and agreeable to speak to editorial writer in the office. Patient appeared to be calmer this morning. Patient continues to be polite with editorial writer and appropriately during conversation. She continues to endorse and improving mood and claims that she is feeling "hopeful" of OD being discharged back to her apartment soon. Patient spoke about the virus and also needing to stay indoors. She claims that she will be doing other hobbies when she gets back to her condo. Her thoughts are more goal oriented and organized in her thought process. Pneumatic Tube Fitter spoke with her about the guardianship hearing and also the paperwork that is involved which needs to be in place prior to her discharge. She states that she slept better last night and offered no Karlo complaints. Patient states that she has been going to groups however she states that she is becoming more bored on the unit. She also claims that she has fair appetite. She denies any suicidal or homicidal ideations and denies any auditory or visual hallucinations. Mental Status Exam: General Appearance: Patient appears to be elderly, stated age is alert, more directable today. Fair hygiene and grooming wearing street clothing. Behavior: Patient is calmly seated without any agitated behavior. Calm and polite. Speech: Patient's speech is fluent and nonpressured. mildly improving. Mood/Affect: Mood is mildly improving, affect is constricted. Suicidality/Homicidality: Denies Perceptions: Denies any auditory or visual hallucinations. Though content/process: Patient is more logical today and more goal oriented. Does not endorse any delusions or paranoia. Memory and concentration: Alert and oriented 3. Judgment and insight: improving mildly. Assessment: Schizoaffective disorder Plan: -Patient continues to meet criteria for inpatient psychiatric admission for symptom stabilization and safety. Patient has signed adult voluntary form and was placed in patient's chart. Patient did not sign for medications at this time. -Medications: We'll continue decreasing PO Prolixin 2.5 mg twice a day for mood stabilization/psychosis. Continue with Cogentin 1 mg twice a day for EPS prophylaxis. We ll give Prolixin IM when necessary in case patient refuses by mouth as per court order. Patient recieved Prolixin D 25 mg IM on 12/20/2019 and tolerated it well. Continue with melatonin 10 mg daily at bedtime for sleep. Continue with Depakote to by mouth 500 mg daily at bedtime for mood stabilization. -When necessary Zyprexa IM 5 mg every 6 hours for agitation/aggression. -NRT -not need this patient does not smoke. - on board for discharge planning. Encouraged the patient to participate in milieu. Patient received court order for treatment on 12/01/2019. Patient received guardian on 12/14/2019 which will be her daughter in [place]. glass processing worker will work with patient's daughter/guardian to help with patient's disposition and care after discharge, currently awaiting guardianship paperwork to be finalized in guardians to gain control of accounts. Likely discharge in 1 days and will be following up with [facility].
[2019-12-22] MEDS: MULTIVITAMINS, THERA 1 EACH TAB PO SCH (17:45)
[2019-12-22] MEDS: MELATONIN 5 MG TABLET PO SCH (22:07)
[2019-12-22] MEDS: DIVALPROEX ER 500 MG TAB.ER.24H PO SCH (22:07)
[2019-12-23] MEDS: LEVOTHYROXINE 112 MCG TAB PO SCH (06:59)
[2019-12-23] MEDS: ARTIFICIAL TEARS-HYPROMELLOSE DROPS 15 ML BTL BOTH EYES SCH (09:12)
[2019-12-23] MEDS: CHOLECALCIFEROL 1,000 UNIT TAB PO SCH (09:14)
[2019-12-23] MEDS: ASPIRIN 81 MG PO SCH (09:14)
[2019-12-23] MEDS: BENZTROPINE MESYLATE 1 MG TAB PO SCH ×2 (09:14→21:23)
[2019-12-23] MEDS: METOPROLOL TARTRATE 25 MG TAB PO SCH ×2 (09:15→21:23)
--- NOTE | 2019-12-23 12:24 | P.PN ---
Progress Note - Text Progress Note Date: 12/23/19 Interval History: Patient was seen sitting at the side of her bed in her room and was directable and agreeable to speak to commercial real estate underwriter in the office. Patient appeared to be calm this morning and was polite with commercial real estate underwriter during conversation. She states that she is continuing to be in limbo until when she can be discharged and is hoping it will be today. She states that she feels that it was something that she did during the court hearings better as delaying her discharge. She claims that she is feeling bored on the unit however his time to remain optimistic. She was appropriate during conversation. She continues to endorse and improving mood. Clinical Provider Trainer spoke with her about the guardianship hearing and also the paperwork that is involved which needs to be in place prior to her discharge. She states that she slept better last night and offered no complaints. Patient states that she has been going to groups. She also claims that she has fair appetite. She denies any suicidal or homicidal ideations and denies any auditory or visual hallucinations. Mental Status Exam: General Appearance: Patient appears to be elderly, stated age is alert, more directable today. Fair hygiene and grooming wearing street clothing. Behavior: Patient is calmly seated without any agitated behavior. Calm and polite. Speech: Patient's speech is fluent and nonpressured. mildly improving. Mood/Affect: Mood is mildly improving, affect is constricted. Suicidality/Homicidality: Denies Perceptions: Denies any auditory or visual hallucinations. Though content/process: Patient is more logical today and more goal oriented. Does not endorse any delusions or paranoia. Memory and concentration: Alert and oriented 3. Judgment and insight: improving mildly. Assessment: Schizoaffective disorder Plan: -Patient continues to meet criteria for inpatient psychiatric admission for symptom stabilization and safety. Patient has signed adult voluntary form and was placed in patient's chart. Patient did not sign for medications at this time. -Medications: We'll continue with PO Prolixin 2.5 mg twice a day for mood stabilization/psychosis. Continue with Cogentin 1 mg twice a day for EPS prophylaxis. We ll give Prolixin IM when necessary in case patient refuses by mouth as per court order. Patient recieved Prolixin D 25 mg IM on 12/20/2019 and tolerated it well. Continue with melatonin 10 mg daily at bedtime for sleep. Continue with Depakote to by mouth 500 mg daily at bedtime for mood stabilization. -When necessary Zyprexa IM 5 mg every 6 hours for agitation/aggression. -NRT -not need this patient does not smoke. -SW on board for discharge planning. Encouraged the patient to participate in milieu. Patient received court order for treatment on 12/01/2019. Patient received guardian on 12/14/2019 which will be her daughter in [place]. railroad worker will work with patient's daughter/guardian to help with patient's disposition and care after discharge, currently awaiting guardianship paperwork to be finalized in guardians to gain control of patient's bank accounts. She will be following up with [facility].
[2019-12-23] MEDS: MULTIVITAMINS, THERA 1 EACH TAB PO SCH (17:35)
[2019-12-23] MEDS: DIVALPROEX ER 500 MG TAB.ER.24H PO SCH (21:22)
[2019-12-23] MEDS: MELATONIN 5 MG TABLET PO SCH (21:22)
[2019-12-24] MEDS: LEVOTHYROXINE 112 MCG TAB PO SCH (06:37)
[2019-12-24] MEDS: BENZTROPINE MESYLATE 1 MG TAB PO SCH ×2 (08:43→20:48)
[2019-12-24] MEDS: METOPROLOL TARTRATE 25 MG TAB PO SCH ×2 (08:43→20:48)
[2019-12-24] MEDS: ASPIRIN 81 MG PO SCH (08:43)
[2019-12-24] MEDS: CHOLECALCIFEROL 1,000 UNIT TAB PO SCH (08:43)
[2019-12-24] MEDS: ARTIFICIAL TEARS-HYPROMELLOSE DROPS 15 ML BTL BOTH EYES SCH (08:44)
--- NOTE | 2019-12-24 11:18 | P.PN ---
Progress Note - Text Progress Note Date: 12/24/19 Interval History: Patient was seen laying on her bed in her room and was directable and agreeable to speak to insurance underwriter sales in the office. Patient was calm and polite this morning with insurance underwriter sales during conversation. She continues to be optimistic and spoke about her day yesterday and this morning. She continues to state that she is speaking with her family over the phone and trying to understand why she is not being discharged. Drywall Hanger Framer explained to her about the guardianship paperwork and also her safety when she is discharged and patient was agreeable. She states that she is bored on the unit however has been trying to do different activities and go to groups. She continues to endorse and improving mood. She does not endorse any delusions or paranoia at this time. She states that she slept better last night and offered no complaints. She did state that she is having some minor tremors in her feet after she takes her Prolixin. She also claims that she has fair appetite. She denies any suicidal or homicidal ideations and denies any auditory or visual hallucinations. Mental Status Exam: General Appearance: Patient appears to be elderly, stated age is alert, more directable today. Fair hygiene and grooming wearing street clothing. Behavior: Patient is calmly seated without any agitated behavior. Calm and polite. Speech: Patient's speech is fluent and nonpressured. mildly improving. Mood/Affect: Mood is mildly improving, affect is constricted. Suicidality/Homicidality: Denies Perceptions: Denies any auditory or visual hallucinations. Though content/process: Patient is more logical today and more goal oriented. Does not endorse any delusions or paranoia. Future oriented. Memory and concentration: Alert and oriented 3. Judgment and insight: improving mildly. Assessment: Schizoaffective disorder Plan: -Patient continues to meet criteria for inpatient psychiatric admission for symptom stabilization and safety. Patient has signed adult voluntary form and was placed in patient's chart. Patient did not sign for medications at this time. -Medications: We'll decrease PO Prolixin 1 mg twice a day for mood stabilization/psychosis. Continue with Cogentin 1 mg twice a day for EPS prophylaxis. Patient recieved Prolixin D 25 mg IM on 12/20/2019 and tolerated it well and will be due for her next injection on 01/03/2020. Continue with melatonin 10 mg daily at bedtime for sleep. Continue with Depakote to by mouth 500 mg daily at bedtime for mood stabilization. -When necessary Zyprexa IM 5 mg every 6 hours for agitation/aggression. -NRT -not need this patient does not smoke. -SW on board for discharge planning. Encouraged the patient to participate in milieu. Patient received court order for treatment on 12/01/2019. Patient received guardian on 12/14/2019 which will be her daughter in [place]. pipe assembly worker will work with patient's daughter/guardian to help with patient's disposition and care after discharge, currently awaiting guardianship paperwork to be finalized in guardians to gain control of patient's bank accounts. Patient's cousin will be going to patient's condo and securing the bank cards and also replenishing her food supply in anticipation for patient's discharge on Friday. She will be following up with [facility].
[2019-12-24] MEDS: MULTIVITAMINS, THERA 1 EACH TAB PO SCH (17:59)
[2019-12-24] MEDS: MELATONIN 5 MG TABLET PO SCH (20:48)
[2019-12-24] MEDS: DIVALPROEX ER 500 MG TAB.ER.24H PO SCH (20:48)
[2019-12-25] MEDS: LEVOTHYROXINE 112 MCG TAB PO SCH (06:50)
[2019-12-25] MEDS: BENZTROPINE MESYLATE 1 MG TAB PO SCH ×2 (08:57→20:42)
[2019-12-25] MEDS: METOPROLOL TARTRATE 25 MG TAB PO SCH ×2 (08:57→20:42)
[2019-12-25] MEDS: ASPIRIN 81 MG PO SCH (08:57)
[2019-12-25] MEDS: ARTIFICIAL TEARS-HYPROMELLOSE DROPS 15 ML BTL BOTH EYES SCH (08:57)
[2019-12-25] MEDS: CHOLECALCIFEROL 1,000 UNIT TAB PO SCH (08:57)
--- NOTE | 2019-12-25 14:16 | P.PN ---
Progress Note - Text Progress Note Date: 12/25/19 Interval history: Patient is seen in [facility] today. She does talk of discharge planning for Friday. She reports that she is feeling ready for this. She does make reference to outpatient follow-up. She does make reference to having awareness of the aldridge virus situation. She does talk about side effect of her feet and legs shaking. Mental status exam: She is alert and cooperative with the interview. Her speech is fluent, not rapid or pressured. Her mood she seems to describe is doing well. She does not verbalize any current hallucinations. She does not voice any thoughts of harm to self or others. She does not display any agitation. Plan: Patient will be maintained on current psychotropic medication regimen. We'll continue to monitor for medication side effects and monitor her ongoing response to treatment.
[2019-12-25] MEDS: MULTIVITAMINS, THERA 1 EACH TAB PO SCH (16:51)
[2019-12-25] MEDS: MELATONIN 5 MG TABLET PO SCH (20:42)
[2019-12-25] MEDS: DIVALPROEX ER 500 MG TAB.ER.24H PO SCH (20:42)
[2019-12-26] MEDS: LEVOTHYROXINE 112 MCG TAB PO SCH (07:13)
[2019-12-26] MEDS: ARTIFICIAL TEARS-HYPROMELLOSE DROPS 15 ML BTL BOTH EYES SCH (08:51)
[2019-12-26] MEDS: ASPIRIN 81 MG PO SCH (08:51)
[2019-12-26] MEDS: CHOLECALCIFEROL 1,000 UNIT TAB PO SCH (08:51)
[2019-12-26] MEDS: BENZTROPINE MESYLATE 1 MG TAB PO SCH ×2 (08:51→20:45)
[2019-12-26] MEDS: METOPROLOL TARTRATE 25 MG TAB PO SCH ×2 (08:51→20:45)
--- NOTE | 2019-12-26 11:52 | P.PN ---
Progress Note - Text Progress Note Date: 12/26/19 Interval history: Patient is again seen in [facility] today. She reports she does feel she is ready for discharge tomorrow. She talks about having received the long-acting injection. She does wonder about her outpatient follow-up, which we discussed would be in her discharge instructions. In terms of medication side effects, initially seems to deny then does make reference to having some shakiness of lower extremities and really she tends to be sensitive to medications. Mental status exam: She is alert and cooperative with the interview. She has fluent speech, not rapid or pressured. Her thought processes organized. She describes her mood as fine. She denies any thoughts of harm to self or others. She does not verbalize any hallucinations. I do not notice any abnormal involuntary movements, when talking about having shakiness of the lower extremities she does begin to have some movement of her foot which then subsides. She does not display any agitation. Plan: Patient will be maintained on current psychotropic medication regimen. Continue to monitor for any medication side effects and monitor her ongoing response to treatment. Discharge planning is in place for tomorrow.
[2019-12-26] MEDS: MULTIVITAMINS, THERA 1 EACH TAB PO SCH (16:58)
[2019-12-26] MEDS: MELATONIN 5 MG TABLET PO SCH (20:45)
[2019-12-26] MEDS: DIVALPROEX ER 500 MG TAB.ER.24H PO SCH (20:45)
[2019-12-27] MEDS: LEVOTHYROXINE 112 MCG TAB PO SCH (06:06)
[2019-12-27 06:49] VITALS: BP 161/78; PULSE 65; RESP 17
[2019-12-27] MEDS: ARTIFICIAL TEARS-HYPROMELLOSE DROPS 15 ML BTL BOTH EYES SCH (08:32)
[2019-12-27] MEDS: BENZTROPINE MESYLATE 1 MG TAB PO SCH (08:33)
[2019-12-27] MEDS: ASPIRIN 81 MG PO SCH (08:33)
[2019-12-27] MEDS: METOPROLOL TARTRATE 25 MG TAB PO SCH (08:33)
[2019-12-27] MEDS: CHOLECALCIFEROL 1,000 UNIT TAB PO SCH (08:33)
--- NOTE | 2019-12-27 12:18 | P.DS ---
Providers Date of admission: 11/20/19 13:06 Expected date of discharge: 12/27/19 Attending physician: Luke Lee MD Consults: 11/20/19 13:10 Consult Physician Routine Consulting Provider: Binh Arnold Consult Reason/Comments: medical management Do you want consulting provider notified?: Already Contacted Primary care physician: Stated None - Discharge Diagnosis(es) (1) Schizoaffective disorder, bipolar type Current Visit: Yes Status: Acute Priority: High Hospital Course: Admission HPI: Admission note was completed by Dr. Waters "The patient is a 74-year-old female who was transferred from the medical unit where she observe since she had recently traveled to [facility] to [place]. I interviewed the patient, review 2 letters (1 written by her daughter Saloni Marquez and another by [facility] social service director) and spoke with her daughter briefly telephone. Most of the information came from her daughter's letter and our brief telephone conversation. She gave a disjointed, disorganized and digressive explanation as to the reason for hospitalization. She talked about "uncle Jason" and "cousin Asmita" expressing concerns about her well-being. During her digressive and vague monologue she belittled friends and family and minimized their concern. See essentially provided no substantial information about the reason for this hospitalization. However, her chart contain information supplied by the social service director and her daughter. The social service director documented that the mobile crisis unit received a call from the [employer] regarding the patient. The [employer] received 2 calls from her [id number] family requesting a wellness check. On 11/17/2019 the police found her confused at her next next door neighbors. Mobile crisis responded to her home at 6:15 PM. She came to the door wearing only a T-shirt. She was unaware of the time and thought it was morning. They describe her speech is tangential. She would not respond directly to questions she was not oriented to time of day. She sometimes spoke softly and politely and a Nigerien accent, at other times she spoke and at ohter times spoke what appeared to be another language. She yelled at the social service director for interrupting her. Her face became red she stood up in a threatening manner and said "if you interrupt me again, I will put you a cauldron scalding hot water." The social service director noticed that she had nails randomly pounded into the wall. The back of her nightgown was stained with urine and a love seat was soaked with a liquid. Her hair was dirty and not kept. She mentioned that she was and was ready to deliver but could not due to a conspiracy were "doctors sewn me up." The letter from her daughter was dated 11/18/2019 and 09/06/2018. Her daughter described 40 year history of psychiatric illness with multiple involuntary voluntary hospitalization. It appears that her last involuntary commitment was in December 2018. According to her daughter, she had repeatedly defied treatment order resulting in re-hospitalizations. Past diagnoses include schizophrenia skills, schizophreniform psychosis and bipolar disorder. The daughter describes the condition as progressive, recurrent and episodic. Past symptoms include errors in thoughts and perceptions, perseveration on a single topic, disrupted sleep and lack of sleep, impaired concentration, attention and judgment, poor nutrition, whispering and partial sentences, difficulty responding to open-ended questions, decrease in self-care, paranoia and delusions, verbally aggressive, giggling inappropriately, mumbling to herself, and inappropriate exposure feelings and catatonia." Hospital course: Upon admission to the unit patient was initially bizarre, floridly psychotic and aggressive. Patient initially did sign voluntary for admission however needed to be petitioned and certified once again and patient had a court hearing on 12/01/2019 and was given a treatment order. Treatment team also filed for guardianship on 12/14/2019 which was granted to patient's daughter in [place] along with a local public guardian. Patient was initially reluctant to take medications and engage in treatment and needed several PRN emergency medications for agitation and psychosis throughout her hospitalization. Patient gradually improved with her medications and gained more insight and became more calm and behaviorally appropriate. Patient got along well with other patients on the unit and followed unit protocol. Patient did have some tremors/akathisia in her legs bilaterally along with her hands when she was placed on Prolixin however with Cogentin and a decrease in the dose of Prolixin patient's side effects gradually improved. Patient was started on Prolixin and titrated up to a dose of 6 mg twice a day for psychosis and patient was given Prolixin D 25 mg IM on 12/20/2019 and tolerated it well. Patient will be due for her next 25 mg IM injection on 01/03/2020. Patient's by mouth Prolixin dose will gradually be titrated off. Patient was also started on Depakote 500 mg nightly for mood stabilization and melatonin 10 mg nightly for sleep. Patient spoke of her stressors and engaged in therapy both group and individual. Patient was also seen by medical team for history and physical exam. Throughout the course of the hospitalization patient gradually improved with regards to mood, psychosis, agitation, sleep and became future oriented with improved insight and judgment. On the day of discharge patient denied any suicidal or homicidal ideations intent or plan denied any auditory or visual hallucinations. Patient endorsed wanting to live for her health and family. The patient denied any access to guns or weapons. Patient denied any paranoia and did not endorse any delusions. Patient does not have a significant history of substance abuse however was counseled on abstaining from all substances including alcohol and marijuana. Patient was also counseled on the medications and need for regular compliance and was encouraged to follow-up with their outpatient appointment for mental health and also for primary care. Prior to discharge a family meeting with patient's guardians will be arranged by social service director to answer any questions and ensure safety upon discharge. Patient also has a cousin that is local in the area that will be helping patient care for herself as patient will be going back to her condo to live. Mental status exam: General Appearance: Patient appears to be stated age is alert, pleasant, and cooperative. Patient is in no acute distress and has fair hygiene and grooming Behavior: Patient is calmly seated without any agitated behavior. Cooperative. Speech: Patient's speech is fluent and nonpressured. Mood/Affect: Patient reports their mood is "better", affect is congruent and euthymic. Suicidality/Homicidality: Patient denies having any suicidal or homicidal ideation intent or plan. Perceptions: Patient denies any auditory or visual hallucinations. Though content/process: There is no evidence of any delusional thought content and thought process is linear and goal-directed. More future oriented. Memory and concentration: AOX3, grossly intact for the purposes of this session. Can spell "WORLD" backwards correctly. Judgment and insight: improved with guarded prognosis Impression: Schizoaffective disorder, bipolar type Plan: -Continue with discharge today as patient has improved and stabilized psychiatrically and is not currently an imminent threat to herself and/or others. -Continue medications: Patient will be continued on by mouth Prolixin 1 mg daily at bedtime plus Cogentin 0.5 mg daily at bedtime for EPS prophylaxis for 7 days and then discontinued. Patient will be receiving her next Prolixin D 25 mg IM injection on and will be given either every 2 weeks or every 3 weeks thereafter. Continue with Depakote 500 mg daily at bedtime for mood stabilization and melatonin 10 mg nightly for sleep. -Patient was counseled on the need for medication compliance and appropriate follow-up at mental health and also primary care for medical issues. Patient verbalized understanding and agreed. -Social work to arrange for and conduct family meeting with patient's guardians to ensure safety upon discharge and answer any questions/concerns. Patient's guardians have been working with the [employer] to gain access to patient's bank accounts to ensure patient's safety with money and resources. Social work also to arrange for patients follow up appointments with [facility] for psychiatric care along with follow up with primary care provider. Will be suggesting that patient is either going to receive either ACT team services versus home care services. -Patient counseled on abstaining from recreational drugs and marijuana and alcohol. Was informed/educated on the adverse effects on their physical and mental health. Patient verbally agreed and understood. -Patient was instructed to return to the hospital or seek immediate medical care if their psychiatric or medical symptoms do worsen or reoccur. Allergies Allergy/AdvReac Type Severity Reaction Status Date / Time aripiprazole [From Abilify] Allergy Unknown Verified 11/20/19 14:35 lamotrigine Allergy Rash/Hives Verified 11/18/19 08:53 zolpidem AdvReac Unknown Verified 11/18/19 08:53 Laboratory Results WBC 8.0 k/uL (3.8-10.6) 12/03/19 18:50 RBC 5.21 m/uL (3.80-5.40) 12/03/19 18:50 Hgb 15.3 gm/dL (11.4-16.0) 12/03/19 18:50 Hct 46.4 % (34.0-46.0) H 12/03/19 18:50 MCV 89.0 fL (80.0-100.0) 12/03/19 18:50 MCH 29.4 pg (25.0-35.0) 12/03/19 18:50 MCHC 33.0 g/dL (31.0-37.0) 12/03/19 18:50 RDW 13.0 % (11.5-15.5) 12/03/19 18:50 Plt Count 320 k/uL (150-450) 12/03/19 18:50 Neutrophils % 81 % 12/03/19 18:50 Lymphocytes % 13 % 12/03/19 18:50 Monocytes % 4 % 12/03/19 18:50 Eosinophils % 0 % 12/03/19 18:50 Basophils % 0 % 12/03/19 18:50 Neutrophils # 6.5 k/uL (1.3-7.7) 12/03/19 18:50 Lymphocytes # 1.0 k/uL (1.0-4.8) 12/03/19 18:50 Monocytes # 0.4 k/uL (0-1.0) 12/03/19 18:50 Eosinophils # 0.0 k/uL (0-0.7) 12/03/19 18:50 Basophils # 0.0 k/uL (0-0.2) 12/03/19 18:50 Sodium 138 mmol/L (137-145) 12/03/19 18:50 Potassium 4.6 mmol/L (3.5-5.1) 12/03/19 18:50 Chloride 107 mmol/L (98-107) 12/03/19 18:50 Carbon Dioxide 21 mmol/L (22-30) L 12/03/19 18:50 Anion Gap 10 mmol/L 12/03/19 18:50 BUN 13 mg/dL (7-17) 12/03/19 18:50 Creatinine 0.84 mg/dL (0.52-1.04) 12/03/19 18:50 Est GFR (CKD-EPI)AfAm 78 (>60 ml/min/1.73 sqM) 12/03/19 18:50 Est GFR (CKD-EPI)NonAf 68 (>60 ml/min/1.73 sqM) 12/03/19 18:50 Glucose 138 mg/dL (74-99) H 12/03/19 18:50 Calcium 10.7 mg/dL (8.4-10.2) H 12/03/19 18:50 Total Bilirubin 0.8 mg/dL (0.2-1.3) 12/03/19 18:50 AST 30 U/L (14-36) 12/03/19 18:50 ALT 21 U/L (4-34) 12/03/19 18:50 Alkaline Phosphatase 105 U/L (38-126) 12/03/19 18:50 Total Protein 7.7 g/dL (6.3-8.2) 12/03/19 18:50 Albumin 4.9 g/dL (3.5-5.0) 12/03/19 18:50 Vital Signs Temp 98.5 F 12/27/19 06:48 Pulse 65 12/27/19 06:48 Resp 17 12/27/19 06:48 BP 161/78 12/27/19 06:48 Pulse Ox 98 12/27/19 06:48 Intake & Output 12/26/19 12/27/19 12/27/19 18:59 06:59 18:59 Weight 76.4 kg Patient Condition at Discharge: Stable Plan - Discharge Summary Discharge Rx Participant: No New Discharge Prescriptions: New Artificial Tears-Hypromellose [Artificial Tear Drops] 2 drops BOTH EYES DAILY #2 bottle Aspirin 81 mg PO DAILY 30 Days chew Benztropine Mesylate [Cogentin] 0.5 mg PO HS 7 Days tab Divalproex ER [Depakote ER] 500 mg PO HS 30 Days tab.er.24h Metoprolol Tartrate [Lopressor] 25 mg PO BID 30 Days tab Melatonin 10 mg PO HS 30 Days tablet fluPHENAZine [Prolixin] 1 mg PO HS 7 Days tab fluPHENAZine DECANOATE [Prolixin Decanoate] 25 mg IM [id number] #1 vial Levothyroxine Sodium [Synthroid] 112 mcg PO 0630 30 Days tab Cholecalciferol [Vitamin D3 (25 Mcg = 1000 Iu)] 2,000 unit PO DAILY 30 Days tab Continue Multivitamins, Thera [Multivitamin (formulary)] 1 tab PO W/SUPPER 30 Days tab Discontinued Metoprolol Tartrate [Lopressor] 25 mg PO BID Levothyroxine Sodium 112 mcg PO DAILY Aspirin [Adult Low Dose Aspirin EC] 81 mg PO DAILY Discharge Medication List Artificial Tears-Hypromellose [Artificial Tear Drops] 2 drops BOTH EYES DAILY #2 bottle 12/27/19 [Rx] Aspirin 81 mg PO DAILY 30 Days chew 12/27/19 [Rx] Benztropine Mesylate [Cogentin] 0.5 mg PO HS 7 Days tab 12/27/19 [Rx] Cholecalciferol [Vitamin D3 (25 Mcg = 1000 Iu)] 2,000 unit PO DAILY 30 Days tab 12/27/19 [Rx] Divalproex ER [Depakote ER] 500 mg PO HS 30 Days tab.er.24h 12/27/19 [Rx] Levothyroxine Sodium [Synthroid] 112 mcg PO 0630 30 Days tab 12/27/19 [Rx] Melatonin 10 mg PO HS 30 Days tablet 12/27/19 [Rx] Metoprolol Tartrate [Lopressor] 25 mg PO BID 30 Days tab 12/27/19 [Rx] Multivitamins, Thera [Multivitamin (formulary)] 1 tab PO W/SUPPER 30 Days tab 12/27/19 [Rx] fluPHENAZine DECANOATE [Prolixin Decanoate] 25 mg IM [id number] #1 vial 12/27/19 [Rx] fluPHENAZine [Prolixin] 1 mg PO HS 7 Days tab 12/27/19 [Rx] Follow up Appointment(s)/Referral(s): [facility] [NON-STAFF] - 1 Week Patient Instructions/Handouts: Suicide Prevention (DC) Activity/Diet/Wound Care/Special Instructions: Activity and diet as tolerated. Avoid the use of street drugs and alcohol. Take all medications as prescribed. When you are in need of refills on your medications please contact your medical provider and/or outpatient psychiatrist to have this done. Please go to scheduled outpatient appointment for aftercare treatment. If symptoms return or become worse, call the crisis line at and/or go to the nearest emergency room for evaluation. Discharge Disposition: HOME SELF-CARE
[2019-12-27] MEDS: MULTIVITAMINS, THERA 1 EACH TAB PO SCH (17:16)
[2019-12-27 17:32] VITALS: TEMP 98.9
[2019-12-27] MEDS ORDERED: BENZTROPINE MESYLATE 0.5 MG TAB PO SCH (21:00)
== END 2019-12-27 17:35 | disposition home or self-care (01) | DRG 885 ==
LOC: 3MHU 13:06
PROVIDERS: ADMIT Psychiatry & Neurology Psychiatry; ATTEND Psychiatry & Neurology Psychiatry
DX: F25.0 Schizoaffective disorder, bipolar type (principal); E03.9 Hypothyroidism, unspecified; E78.5 Hyperlipidemia, unspecified; F43.10 Post-traumatic stress disorder, unspecified; I10 Essential (primary) hypertension; Z79.82 Long term (current) use of aspirin; Z79.890 Hormone replacement therapy; Z79.899 Other long term (current) drug therapy; Z90.710 Acquired absence of both cervix and uterus; Z91.19 Patient's noncompliance with other medical treatment and regimen; R45.1 Restlessness and agitation; Z88.8 Allergy status to other drugs, medicaments and biological substances
CPT/HCPCS: 80053; 85025

== ENCOUNTER 2020-01-13 11:01 | Emergency (ER) | payer MEDICARE, OTHER ==
[2020-01-13 11:08] VITALS: PULSE 62; RESP 18; TEMP 97.8
[2020-01-13] MEDS ORDERED: cloNIDine HCL 0.1 MG TAB PO STA (11:40)
--- NOTE | 2020-01-13 11:44 | ED ---
Recheck HPI - General Chief Complaint: Recheck/Abnormal Lab/Rx Stated Complaint: High BP Time Seen by Provider: 01/13/20 11:13 Source: patient, family Mode of arrival: ambulatory Limitations: no limitations - History of Present Illness Initial Comments: Patient is a 74-year-old female presenting to the emergency Department with complaints of high blood pressure 2 days. Patient states she is currently receiving treatment for CMH and has not been able to get her injection for the last 2 days because her blood pressure has been over 150. Patient does admit to having whitecoat syndrome and this is being monitored by her PCP. Patient states the last few times she is trying to get her injection her blood pressure has been over 150-160. She has no specific complaints today. She denies headache, blurry vision, dizziness, chest pain, shortness of breath, abdominal pain. She states she feels "fine." She will have a visiting physician managing her case starting next week however she has been trying to get her injection for 3 days now so they brought her to the ER. She has no other complaints at this time. Upon arrival to the ER, her blood pressure is 162/101, rest of vitals are normal. - Related Data Previous Rx's Medication Instructions Recorded Artificial Tears-Hypromellose 2 drops BOTH EYES DAILY #2 bottle 12/27/19 [Artificial Tear Drops] Aspirin 81 mg PO DAILY 30 Days chew 12/27/19 Benztropine Mesylate [Cogentin] 0.5 mg PO HS 7 Days tab 12/27/19 Cholecalciferol [Vitamin D3 (25 2,000 unit PO DAILY 30 Days tab 12/27/19 Mcg = 1000 Iu)] Divalproex ER [Depakote ER] 500 mg PO HS 30 Days tab.er.24h 12/27/19 Levothyroxine Sodium [Synthroid] 112 mcg PO 0630 30 Days tab 12/27/19 Melatonin 10 mg PO HS 30 Days tablet 12/27/19 Metoprolol Tartrate [Lopressor] 25 mg PO BID 30 Days tab 12/27/19 Multivitamins, Thera [Multivitamin 1 tab PO W/SUPPER 30 Days tab 12/27/19 (formulary)] fluPHENAZine DECANOATE [Prolixin 25 mg IM [id number] #1 vial 12/27/19 Decanoate] fluPHENAZine [Prolixin] 1 mg PO HS 7 Days tab 12/27/19 Allergies Allergy/AdvReac Type Severity Reaction Status Date / Time aripiprazole [From Abilify] Allergy Unknown Verified 01/13/20 11:08 lamotrigine Allergy Rash/Hives Verified 01/13/20 11:08 zolpidem AdvReac Unknown Verified 01/13/20 11:08 Review of Systems ROS Statement: Those systems with pertinent positive or pertinent negative responses have been documented in the HPI. ROS Other: All systems not noted in ROS Statement are negative. Past Medical History Past Medical History: Hyperlipidemia, Thyroid Disorder History of Any Multi-Drug Resistant Organisms: None Reported Past Surgical History: Hysterectomy, Tonsillectomy Past Psychological History: Schizoaffective Disorder Smoking Status: Never smoker Past Alcohol Use History: None Reported Past Drug Use History: None Reported General Exam - General Exam Comments Initial Comments: GENERAL: Well-appearing, well-nourished and in no acute distress. HEAD: Atraumatic, normocephalic. EYES: Pupils equal round and reactive to light, extraocular movements intact, sclera anicteric, conjunctiva are normal. ENT: TMs normal, nares patent, oropharynx clear without exudates. Moist mucous membranes. NECK: Normal range of motion, supple without lymphadenopathy or JVD. LUNGS: Breath sounds clear to auscultation bilaterally and equal. No wheezes rales or rhonchi. HEART: Regular rate and rhythm without murmurs, rubs or gallops. ABDOMEN: Soft, nontender, normoactive bowel sounds. No guarding, no rebound. No masses appreciated. : Deferred EXTREMITIES: Normal range of motion, no pitting or edema. No clubbing or cyanosis. NEUROLOGICAL: Cranial nerves II through XII grossly intact. Normal speech, normal gait. PSYCH: Normal mood, normal affect. SKIN: Warm, Dry, normal turgor, no rashes or lesions noted. Limitations: no limitations Course Vital Signs 01/13/20 01/13/20 11:03 12:15 Temperature 97.8 F Pulse Rate 62 Respiratory 18 Rate Blood Pressure 162/101 149/96 O2 Sat by Pulse 99 Oximetry Medical Decision Making - Medical Decision Making Patient is a 74-year-old female with history of hypertension, currently on metoprolol, presenting with hypertension 2 days. Patient has been trying to get her biweekly dose of Prolixin through [facility] but has been unable because her blood pressure has been over 150. She does admit to having whitecoat syndrome which is monitored by her PCP.. Her exam is unremarkable today. She has no complaints. Patient was given single dose of 0.1 mg clonidine. Recheck blood pressure was 149/96. Patient is stable for discharge. She'll follow up with her PCP. Patient is in agreement this plan of care. Return parameters were discussed with the patient she verbalized understanding. Patient is accompanied by [facility] construction representative. Disposition Clinical Impression: Hypertension Disposition: HOME SELF-CARE Condition: Stable Instructions (If sedation given, give patient instructions): Hypertension (ED) Additional Instructions: Please return to the Emergency Department if symptoms worsen or any other concerns. Follow-up with PCP for further management. (Pt was given 0.1mg of clonidine today.) Is patient prescribed a controlled substance at d/c from ED?: No Referrals: None,Stated [Primary Care Provider] - 1-2 days
[2020-01-13 12:57] VITALS: BP 149/96
== END 2020-01-13 12:41 | disposition home or self-care (01) ==
LOC: EC 11:01 → EEVIPCON 11:01 → EC 12:41
DX: I10 Essential (primary) hypertension (principal); Z88.8 Allergy status to other drugs, medicaments and biological substances
CPT/HCPCS: 99283

== ENCOUNTER → 2020-02-21 | Outpatient (CLI) | payer MEDICARE, OTHER ==
[2020-02-21 21:57] LABS: Albumin 4.2 g/dL (3.80-4.90); Albumin/Globulin Ratio 2.1 (1.60-3.17); Bilirubin, Conjugated 0.2 mg/dL (0.20-0.40); Bilirubin,Unconjugated 0.4 mg/dL; Total Bilirubin 0.6 mg/dL (0.2-1.2); Total Protein 6.2 g/dL (6.2-8.2)
[2020-02-22 01:45] LABS: Valproic Acid (Depakene) 79.4 ug/mL (50.0-100.0)
== END | disposition home or self-care (01) ==
LOC: LABWHC1 11:28
PROVIDERS: ATTEND Psychiatry & Neurology Psychiatry
DX: Z51.81 Encounter for therapeutic drug level monitoring (principal); Z79.899 Other long term (current) drug therapy
CPT/HCPCS: 36415; 80076; 80164